=== PATIENT | female | born 1940 | race Caucasian/White ===

== ENCOUNTER → 2016-08-30 | Outpatient (CLI) | payer BC ==
[~2016-08-30] MED LIST: CALC500C70 PO; CALCIUM/MAG PO; CELE50CA PO; CHOL100010 PO; CLB200 PO; ESCI10TA17 PO; ESTER-C PO; LEVO50TA PO; LEVO75TA PO; LEVO75TA36 PO; MULT-506 PO; OXGN; OXYC-57 PO; PANT40TA PO; RXC5 PO; [UNRECOGNIZED DRUG - CODE] PO
== END | disposition home or self-care (01) ==
LOC: C.LABMFLN 11:01
PROVIDERS: ATTEND Family Medicine
DX: R19.7 Diarrhea, unspecified (principal)

== ENCOUNTER → 2016-09-18 | Outpatient (CLI) | payer BC ==
[2016-09-18 18:14] LABS: BASO % 0.5 %; BASO ABS # 0.05 K/uL (0-0.2); COMPLETE YES; EOS % 3.2 %; HEMATOCRIT 41.2 % (37-47); IG% 0.3 %; LYMPH % 31.8 %; LYMPH ABS # 2.98 K/uL (1.2-3.4); MEAN CELL VOLUME 89.6 fL (80-100); MEAN CORPUSCULAR HEMOGLOBIN 29.1 pg (25-34); MEAN CORPUSCULAR HGB CONC 32.5 g/dl (32-36); MONO % 7.6 %; NEUT % 56.6 %; PLATELET COUNT 322 K/uL (130-400); WHITE BLOOD COUNT 9.38 K/uL (4.8-10.8)
[2016-09-22 11:03] LABS: GLIADIN DEAMIDATED IgA AB 4 UNITS (<20); GLIADIN DEAMIDATED IgG AB 3 UNITS (<20); RETICULIN IgA AB Negative (Negative)
== END | disposition home or self-care (01) ==
LOC: C.LABMFLN 14:41
PROVIDERS: ATTEND Internal Medicine Gastroenterology
DX: K52.9 Noninfective gastroenteritis and colitis, unspecified (principal); R19.4 Change in bowel habit

== ENCOUNTER 2017-05-04 08:52 | Inpatient (IN) | payer BC, OTHER ==
[2017-04-27 14:01] VITALS: BMI 25.0
--- NOTE | 2017-04-27 14:58 | PAT Medication Instructions ---
Service Date Apr 27, 2017. Current Home Medication List Calcium/Vitamin D (Os-Perez 500 Plus D), 1 TAB PO QAM Cholecalciferol (Vitamin D), 2,000 UNIT PO QAM Escitalopram (Lexapro), 10 MG PO QAM Home O2 Therapy (Oxygen), 3 LITERS NA PRN PRN for ACTIVITY Levothyroxine Sodium (Synthroid), 50 MCG PO QAM Multivitamin (Multivitamin), 1 TAB PO QAM Oxycodone/Acetaminophen 5MG/325MG (Percocet 5MG/325MG), 1-2 TABLETS PO Q4H PRN for Pain Pantoprazole (Protonix), 40 MG PO QAM Pirfenidone (Esbriet), 3 CAP PO TID [Charlotte-C], 500 MG PO DAILY Medication Instructions For Your Scheduled Surgery - Hold the following medications the morning of surgery: Calcium/Vitamin D (Os-Perez 500 Plus D), 1 TAB PO QAM Cholecalciferol (Vitamin D), 2,000 UNIT PO QAM [Charlotte-C], 500 MG PO DAILY Multivitamin (Multivitamin), 1 TAB PO QAM - Take the following medications the morning of surgery with a sip of water OTHERWISE NOTHING TO EAT OR DRINK AFTER MIDNIGHT: Pirfenidone (Esbriet), 3 CAP PO TID Pantoprazole (Protonix), 40 MG PO QAM Levothyroxine Sodium (Synthroid), 50 MCG PO QAM Escitalopram (Lexapro), 10 MG PO QAM Oxycodone/Acetaminophen 5MG/325MG (Percocet 5MG/325MG), 1-2 TABLETS PO Q4H PRN for Pain (may take if needed up to 4 hours prior to surgery) - Take the following medications as scheduled the night before surgery: Pirfenidone (Esbriet), 3 CAP PO TID Oxycodone/Acetaminophen 5MG/325MG (Percocet 5MG/325MG), 1-2 TABLETS PO Q4H PRN for Pain If you have any questions please call us at [phone] or [phone] or [phone]
[2017-04-27 15:17] LABS: ESTIMATED AVERAGE GLUCOSE 117 mg/dl; HA1C FLAG Normal (Normal)
[2017-04-27 15:30] LABS: INR 0.9 (0.9-1.1); PARTIAL THROMBOPLASTIN RATIO 0.9
[2017-04-27 15:36] LABS: BUN/CREATININE RATIO 16.3 (10-20); CALCIUM 9.2 mg/dl (8.5-10.1); CREATININE 0.82 mg/dl (0.60-1.20); POTASSIUM 3.7 mmol/L (3.5-5.1)
[2017-04-27 15:44] LABS: BASO % 0.3 %; BASO ABS # 0.03 K/uL (0-0.2); COMPLETE YES; EOS % 0.8 %; HEMATOCRIT 39.6 % (37-47); IG% 0.4 %; LYMPH % 24.2 %; LYMPH ABS # 2.58 K/uL (1.2-3.4); MEAN CELL VOLUME 90.4 fL (80-100); MEAN CORPUSCULAR HEMOGLOBIN 29.2 pg (25-34); MEAN CORPUSCULAR HGB CONC 32.3 g/dl (32-36); MEAN PLATELET VOLUME 9.2 fL (7.4-10.4); MONO % 9.6 %; NEUT % 64.7 %; PLATELET COUNT 292 K/uL (130-400); RED BLOOD COUNT 4.38 M/uL (4.2-5.4); WHITE BLOOD COUNT 10.68 K/uL (4.8-10.8)
[2017-04-27 15:55] LABS: URINE APPEARANCE CLEAR (CLEAR); URINE BILIRUBIN NEG (NEG); URINE COLOR DK YELLOW; URINE EPITHELIAL CELL AUTO >30 /lpf (0-5); URINE NITRITE NEG (NEG); URINE PH 5.5 (4.5-7.5); URINE SPECIFIC GRAVITY 1.034 (1.000-1.030); UROBILINOGEN NEG (NEG); ZZUR CULT IF INDIC CLEAN CATCH NO
--- NOTE | 2017-04-27 15:55 | DIAGNOSTIC IMAGING REPORT ---
CHEST 2 VIEWS ROUTINE CLINICAL HISTORY: Preoperative chest COMPARISON STUDY: 10/27/2011 FINDINGS: The heart is enlarged. There has been moderate progression in the extensive interstitial pulmonary fibrosis. There is no lobar consolidation. There are no significant pleural effusions. There is an ununited proximal right humeral fracture.[ IMPRESSION: 1. Progressive interstitial pulmonary fibrosis 2. Displaced ununited proximal right humeral fracture Electronically signed by: Adolfo Pelaez M.D. 04/27/2017 3:54 PM Dictated Date/Time: 04/27/2017 3:52 PM
[2017-04-27 15:59] LABS: MANUAL MICROSCOPIC REQUIRED? NO; REVIEW REQ? NO
--- NOTE | 2017-04-30 08:22 | History and Physical ---
History & Physical Date Apr 30, 2017. Chief Complaint Right shoulder pain History of Present Illness The patient is a 76 year old female with complaints of Right shoulder pain. She states she fell at home on 04/23/17. She states her pain is consistent and it is difficult to move her arm. She had previous x-rays and was in a sling. New x- rays in office show displaced proximal humerus fracture with significant comminution of the lateral aspect of the humeral head. We will schedule her for a right shoulder ORIF with plate fixation verse Right reverse TSA. Past Medical/Surgical History PMHx: (1) Pulmonary Fibrosis (2) Anxiety (3) Hypothyroidism (4) Osteoporosis (5) GERD (6) History of Melanoma PSHx: (1) Right CARLOS (2) Appendectomy (3) Tonsillectomy Additional History Hepatic Disease: No Endocrine Disorder: Yes (Hypothyroidism) Kidney Disease: No Hypertension: No Heart Disease: No Bleeding Tendencies: No Infectious Diseases: No Allergies Coded Allergies: Cefixime (Verified Allergy, Intermediate, HIVES, 04/27/17) Sodium Benzoate (Verified Allergy, Intermediate, HIVES, 04/27/17) Home Medications Scheduled Calcium/Vitamin D (Os-Perez 500 Plus D), 1 TAB PO QAM Cholecalciferol (Vitamin D), 2,000 UNIT PO QAM Escitalopram (Lexapro), 10 MG PO QAM Levothyroxine Sodium (Synthroid), 50 MCG PO QAM Multivitamin (Multivitamin), 1 TAB PO QAM Pantoprazole (Protonix), 40 MG PO QAM Pirfenidone (Esbriet), 3 CAP PO TID [Charlotte-C], 500 MG PO DAILY Scheduled PRN Home O2 Therapy (Oxygen), 3 LITERS NA PRN PRN for ACTIVITY Oxycodone/Acetaminophen 5MG/325MG (Percocet 5MG/325MG), 1-2 TABLETS PO Q4H PRN for Pain Physical Examination Skin: warm/dry, no rash Eyes: normal inspection, EOMI ENT: normal ENT inspection Head: normocephalic, atraumatic Neck: supple, no adenopathy Respiratory/Chest: + pertinent finding (Crackles noted due to Pulmonary fibrosis) Cardiovascular: regular rate, rhythm, no murmur Abdomen / GI: normal bowel sounds, non tender Extremities: + pertinent finding (Right upper extremity with limited ROM due to pain. Ecchymosis, swelling) Neurologic/Psych: no motor/sensory deficits, alert, oriented x 3 Addiitonal Comments: X-rays of the right shoulder demonstrate displacement of the proximal humerus fracture compared to previous films. Diagnosis Displaced Right proximal humerus fracture. Plan of Treatment Patient has failed conservative therapies of a sling and immobilization. X-rays of her right shoulder demonstrated a displaced proximal humerus fracture with significant comminution of the lateral aspect of the humeral head. She will be scheduled for right shoulder ORIF with plate fixation verse Right reverse TSA. She will obtain a CT scan to determine bone quality. Risks and benefits to surgery were discussed that included but not limited to pain, infection, DVT, stiffness, need for revision surgery, damage to blood vessels, damage to nerves , PE, , and anesthesia risk were all discussed and she wishes to proceed. All questions were answered to her satisfaction.
[2017-05-04] VITALS (10 sets, daily range): BP systolic 100–166; BP diastolic 54–86; PULSE 58–79; TEMP 36.4–36.5; O2SAT 94–100; Ht 152.4 cm; Wt 59.6 kg
[~2017-05-04] VITALS: Ht 152.4 cm; Wt 59.6 kg
[~2017-05-04 08:52] MED LIST changes: +BUPIVACAINE 0.5 % 5 MG/1 ML PF 10ML VIAL ONE; -CALCIUM/MAG PO; +CEFAZOLIN 1000MG/55 ML D5W IV SCH; -CELE50CA PO; -CLB200 PO; +CLONIDINE HCL 100 MCG/ML SYRINGE ONE; +LACTATED RINGER'S 1000ML 1,000 ML IV SCH; -LEVO75TA PO; -LEVO75TA36 PO; +MEPIVACAINE HCL 1.5% 30 ML VIAL ONE; +ROPIVACAINE 5MG/ML 30 ML 150 MG, BUPIVACAINE/EPINEPHR 0.5% MPF 30 ML, KETOROLAC TROMETH... INFIL SCH; -RXC5 PO; +VANCOMYCIN 1GM/270ML NSS 270 ML IV SCH
[2017-05-04] MEDS ORDERED: CELE50CA PO (09:22)
--- NOTE | 2017-05-04 09:36 | History & Physical Bridge Note ---
H&P Re-Evaluation Bridge Note: I have examined the patient, reviewed the History & Physical and in the interval since the performance of the History & Physical I have noted the following changes of clinical significance: No changes noted
[2017-05-04] MEDS ORDERED: NURSING VERBAL MED ORDER ONE ×2 (10:15→19:15)
[2017-05-04] MEDS ORDERED: PROPOFOL IV EMULSION 10 MG/ML 20 ML VIAL IV ONE (10:32)
[2017-05-04] MEDS ORDERED: FENTANYL CITRATE INJ 50 MCG/1 ML 2 ML VIAL ONE (10:32)
[2017-05-04] MEDS ORDERED: MIDAZOLAM HCL 1 MG/ML 2ML VIAL ONE (10:32)
[2017-05-04] MEDS ORDERED: THROMBIN FOR SOLN 20000 UNIT KIT ONE (11:59)
[2017-05-04] MEDS ORDERED: POVIDONE-IODINE OP SOLN 30 ML BTL ONE (12:00)
[2017-05-04] MEDS ORDERED: LABETALOL HCL IV 5 MG/ML 20ML IV PRN (12:00)
[2017-05-04] MEDS ORDERED: HYDROmorphone INJ 2 MG/ML SYR/VIAL IV PRN (12:00)
[2017-05-04] MEDS ORDERED: PHENYLEPHRINE 100MCG/ML 5ML SYR IV PRN (12:00)
[2017-05-04] MEDS ORDERED: MEPERIDINE HCL 25 MG/ML CARP IV PRN (12:00)
[2017-05-04] MEDS ORDERED: ONDANSETRON INJ 2 MG/ML 2 ML VIAL IV PRN ×2 (12:00→15:15)
[2017-05-04] MEDS ORDERED: ATROPINE SULFATE 0.1 MG/ML 5ML SYR IV PRN (12:00)
[2017-05-04] MEDS ORDERED: EpHEDrine SULFATE INJ 50 MG/ML AMP IV PRN (12:00)
[2017-05-04] MEDS ORDERED: VANCOMYCIN HCL 1000MG/20ML VIAL ONE (12:00)
[2017-05-04] MEDS ORDERED: NALOXONE HCL 0.4 MG/1 ML VIAL/CARP IV PRN (12:00)
[2017-05-04] MEDS ORDERED: BACITRACIN 50000 UNIT VIAL ONE (12:00)
[2017-05-04] MEDS ORDERED: FLUMAZENIL 0.1 MG/1 ML 10 ML VIAL IV PRN (12:00)
[2017-05-04] MEDS ORDERED: FENTANYL CITRATE INJ 50 MCG/1 ML 2 ML VIAL IV PRN (12:00)
[2017-05-04] MEDS ORDERED: ROPIVACAINE 0.5% 5 MG/ML 30 ML VIAL ONE (12:23)
[2017-05-04] MEDS ORDERED: BUPIVACAINE/EPINEPHRINE 0.5% MPF 1:200,000 30 ML VIAL ONE (12:24)
[2017-05-04] MEDS ORDERED: GLYCOPYRROLATE INJ 0.2 MG/ML VIAL ONE ×2 (14:25→14:27)
[2017-05-04] MEDS ORDERED: ROCURONIUM BROMIDE 10 MG/ML 5 ML VIAL IV ONE (14:25)
[2017-05-04] MEDS ORDERED: PHENYLEPHRINE 100MCG/ML 5ML SYR ONE (14:25)
[2017-05-04] MEDS ORDERED: PHENYLEPHRINE HCL INJ 10 MG/ML VIAL ONE (14:25)
[2017-05-04] MEDS ORDERED: METOCLOPRAMIDE HCL INJ 5 MG/ML 2 ML VIAL IV PRN (15:15)
[2017-05-04] MEDS ORDERED: ALUMINUM/MAGNESIUM SUSP 30 ML UDC PO PRN (15:15)
[2017-05-04] MEDS ORDERED: MAGNESIUM HYDROXIDE SUSP 30 ML UDC PO PRN (15:15)
[2017-05-04] MEDS: KETOROLAC TROMETHAMINE 15 MG/ML VIAL IM SCH ×2 (15:15→21:15)
[2017-05-04] MEDS ORDERED: MoRPHine SULFATE 2 MG/ML CARP IV PRN ×2 (15:15→17:30)
--- NOTE | 2017-05-04 15:30 | [facility] Operative Report ---
Operative Report Operative Date May 04, 2017. Pre-Operative Diagnosis Displaced comminuted 4 part Right Proximal Humerus Fracture Post-Operative Diagnosis same, tear long head of the biceps tendon Procedure(s) Performed Right Reverse Total Shoulder Arthroplasty; Cemented, biceps tenodesis Surgeon Dr. Scooby Pearson Diet Attendant Surgeon(s) Wili Nam PA-C Estimated Blood Loss 100 cc Findings Severe comminution of the greater tuberosity as well as the lesser tuberosity Specimens a. right humeral head Drains one Hemovac Anesthesia Gen. and interscalene block Complication(s) None Disposition Recovery Room / PACU Indications 76-year-old female who sustained a fall. She sustained a initially acceptably aligned proximal humerus fracture. She was seen again in 1 week after the injury and the fracture had significantly displaced. She was initially consented for ORIF versus arthroplasty depending on the findings of a CT scan. CT scan then demonstrated fairly severe comminution of both the greater tuberosity as well as lesser tuberosity. We elected to proceed with a reverse total shoulder arthroplasty Description of Procedure Risks, benefits and alternatives to surgery including, but not limited to, infection DVT, pain, stiffness, need for revision surgery, failure to relieve all symptoms, damage to blood vessels, damage to nerves, risk of anesthesia were discussed with the patient and they wished to proceed. The patient was identified. Laterality was confirmed and marked. The patient received a preoperative antibiotic as well as an interscalene block. They were transferred to the operating room and placed in the supine position and induced into general endotracheal anesthesia per the anesthesia staff. The patient was then safely transferred to a slight beachchair position. The patient was secured in the Tenet positioner. All pressure points were well padded. The shoulder was prepped and draped in the usual sterile manner with ChloraPrep. The arm was secured in the Spider de la torre. I made a longitudinal incision just lateral to the coracoid, sharply incising through the skin and utilizing Bovie electrocautery to achieve hemostasis. I identified the cephalic vein and mobilized it laterally with the deltoid. I mobilize the pectoralis and mobilize this medially releasing a small portion of the upper border of the pec tendon to improve visualization. I then identified and mobilized the conjoined tendon. I identified the long head of the biceps tendon. The long head of the biceps tendon had significant tendinosis and tearing proximally. I performed an in situ biceps tenodesis with interrupted #2 FiberWire suture. I dissected proximally and identified the fracture site. I then released the subscapularis. There was significant comminution to the lesser tuberosity and there was little bone that was still in continuity with the subscapularis. The subscapularis was tagged with interrupted #2 FiberWire suture for later repair. I then mobilized the humeral head fragment. I used an osteotome to remove the greater tuberosity portion that was still with the humeral head. I then placed a total of 3 #2 FiberWire sutures into the supraspinatus and infraspinatus which still had a little bit of bony material attached for later repair of the tuberosities. I then sequentially reamed up to a size 7. I was not able to get up to the next size reamer. I tried to use a press-fit stem but there was essentially no metaphyseal bone remaining and I did not feel I could get rotational control with the press-fit stem so I elected to use a 6.5 mm cemented fracture stem. I placed retractors around the glenoid and then excised the residual biceps tendon stump and glenoid labrum. I elevated the soft tissues and the inferior aspect of the glenoid to improve exposure and released tissues circumferentially. I then positioned and drilled for the central post for the glenoid plate. The glenoid plate was bone grafted with bone taken from the humeral head. I impacted the definitive glenoid plate into position and then placed a total of 4 compression screws that were then locked into position with locking caps. I then placed the size 38 glenosphere onto the plate and secured it with a locking screw. I then prepared the humerus by irrigating for placement of the fracture stem. I trimmed the cement restrictor down the central portion of the cement restrictor measures 8 mm but the insertion handle is 10 mm and would not fit down the humerus. I used a long fracture stem to impact the cement restrictor to an appropriate depth distally. I then cemented the definitive stem with Palacos G cement . I trialed off of the definitive stem. There was good fit with a plus [0) humeral tray and a plus 2.5 mm humeral liner. The definitive components used were [employer] Equinox: Humeral cemented fracture stem: 6.5 Standard glenoid plate Glenosphere: 38 Humeral tray:+ 0 Humeral polyethylene liner: + 2.5 I thoroughly irrigated the wound. Deep tissues were anesthetized with an orthomix solution. I then locked my definitive humeral tray into position with a torque limiting screw. I then impacted the definitive humeral polyethylene liner into position. I then reduced the shoulder. There was good range of motion and good stability after the reduction. The wound was again thoroughly irrigated and a Betadine soak was performed. A deep drain was placed. The deltopectoral interval was closed with interrupted #1 Ethibond suture. The subcutaneous tissue was closed with interrupted 2-0 Vicryl suture. The skin was closed with antonio. A sterile dressing was applied. A sling was placed. All needle and sponge counts were correct at the end of the procedure. The patient was transferred to the PACU in stable condition without apparent complication. The PA-C was necessary for assistance with procedure for assistance in positioning, prepping, draping, retraction and closure. I attest to the content of the Intraoperative Record and any orders documented therein. Any exceptions are noted below.
--- NOTE | 2017-05-04 16:55 | DIAGNOSTIC IMAGING REPORT ---
R SHOULDER MIN 2 VIEWS ROUTINE CLINICAL HISTORY: 76 years-old Female presenting with Post shoulder surgery. TECHNIQUE: Frontal and transscapular Y views of the right shoulder were obtained. COMPARISON: Chest x-ray from 04/27/2017. FINDINGS: Interval postsurgical changes of total reverse right shoulder arthroplasty for the right humeral neck fracture. Surgical drain and skin antonio noted as well as soft tissue emphysema. No malalignment. No hardware complication. Again demonstrated are diffuse reticular opacities with a basilar predominance in the right lung. IMPRESSION: Expected postoperative appearance status post total reverse right shoulder arthroplasty. Electronically signed by: Scooby Guthrie M.D. 05/04/2017 4:54 PM Dictated Date/Time: 05/04/2017 4:52 PM
[2017-05-04] MEDS ORDERED: SODIUM CHLORIDE 0.9% 1000ML 1,000 ML IV SCH (17:27)
[2017-05-04] MEDS ORDERED: MoRPHine SULFATE 4 MG/ML 1 ML CARP\\VIAL IV PRN (17:30)
[2017-05-04] MEDS ORDERED: LORAZEPAM 0.5 MG TAB PO PRN (17:30)
[2017-05-04] MEDS ORDERED: LORAZEPAM 2 MG/ML 1 ML VIAL IV PRN ×2 (17:30)
[2017-05-04] MEDS ORDERED: NOREPINEPHRINE BIT INJ 8 MG in DEXTROSE 5% 500ML 500 ML IV PRN (17:45)
--- NOTE | 2017-05-04 18:28 | Medical Consult ---
History General Date of Service: May 04, 2017. Stated Complaint: Fracture of Upper End Right Humerus; Initial Encou HPI The patient is a 76 year old female who presents to [facility] with complaints of Fracture of Upper End Right Humerus; Initial Encou. The patient's primary care provider is Christal Dumont M.D.. I was called to see this patient in the postanesthesia care unit. The patient had a shoulder replacement and is now has been persistent postoperative hypotension. The patient typically does not take any medications for hypertension and preoperatively she did have her blood pressure in the 110's over 70s. The patient was awake alert and responsive she typically wears 3 L of oxygen at home which she had replaced her right arm nerve block was still intact and she is having only minor paresthesias to her distal right arm the patient had a blood pressure cuff on the distal upper left arm it was reading 90/50. This is after recently receiving phenylephrine. Patient is having no chest pain pressure do not feel any increased shortness of breath over baseline no abdominal pain and she's having no decreased mentation Review of Systems ROS: well nourished well developed No double vision blurry vision No problems with speech or swallowing No palpitations, chest pain or pressure No Wheezing or breathing issues No abdominal pain nausea vomiting diarrhea changes in appetite or weight No burning urine urine frequency or changes in color Patient has numbness of her right arm from her nerve block as would be expected her left arm distal sensation and pulses are intact No skin rashes or oral lesions No unusual bruising or bleeding No focused back pain or numbness or loss of strength No changes in memory or confusion Past Medical History Past Medical History: arthritis (osteoarthritis), cancer (she had melena removal), high cholesterol, hypothyroidism, lung disease (patient has pulmonary fibrosis) Past Surgical History: tonsillectomy, other (surgeon to remove her melena) Family History Parent: Hypertension, Lung Disease (unsure what kind) Social History Hx Tobacco Use In Past Year?: No Smoking Status: Never Smoker Immunizations History of Influenza Vaccine: Yes Influenza Vaccine Date: Apr 16, 2011 History of Tetanus Vaccine?: Yes History of Pneumococcal: No History of Hepatitis B Vaccine: No Allergies Coded Allergies: Cefixime (Verified Allergy, Intermediate, HIVES, 05/04/17) Sodium Benzoate (Verified Allergy, Intermediate, HIVES, 05/04/17) Current Medications Reported Home Medications Medications Dose Route/Sig Max Daily Dose Days Date Category Dose Instructions Celebrex (Celecoxib) 50 Mg Cap 50 Mg PO BID 05/04/17 Reported Vitamin D (Cholecalciferol) 1,000 Unit Tab 2,000 Unit PO QAM 04/27/17 Reported Protonix (Pantoprazole Sodium) 40 Mg Tab 40 Mg PO QAM 04/27/17 Reported Oxygen Gas 3 Liters NA PRN PRN 04/27/17 Reported Lexapro (Escitalopram Oxalate) 10 Mg Tab 10 Mg PO QAM 04/27/17 Reported Esbriet (Pirfenidone) 267 Mg Cap 3 Cap PO TID 04/27/17 Reported CLINICAL TRIAL DRUG Os-Perez 500 Plus D (Calcium/Vitamin D) Tab 1 Tab PO QAM 04/27/17 Reported Synthroid (Levothyroxine Sodium) 50 Mcg Tab 50 Mcg PO QAM 04/27/17 Reported Multivitamin (Multivitamins) Tab 1 Tab PO QAM 10/27/11 Reported [Charlotte-C] 500 Mg PO DAILY 10/27/11 Reported Physical Physical Exam Vital Signs: Date Time Temp Pulse Resp B/P (MAP) Pulse Ox O2 Delivery O2 Flow Rate FiO2 05/04/17 17:51 94/60 05/04/17 17:49 62 16 05/04/17 17:49 62 16 99 05/04/17 17:47 94/55 05/04/17 17:44 64 30 99 05/04/17 17:44 64 30 05/04/17 17:39 63 24 99 05/04/17 17:39 63 24 05/04/17 17:38 93/58 05/04/17 17:36 73/59 05/04/17 17:34 62 31 99 05/04/17 17:34 62 31 05/04/17 17:31 97/56 05/04/17 17:29 81 16 05/04/17 17:29 81 16 94 05/04/17 17:27 112/55 05/04/17 17:24 67 20 98 05/04/17 17:24 68 20 05/04/17 17:21 98/64 05/04/17 17:19 66 20 100 05/04/17 17:19 67 20 05/04/17 17:16 87/64 05/04/17 17:14 56 27 9/22/17 17:14 56 27 100 9/22/17 17:11 95/60 9/22/17 17:09 59 25 9/22/17 17:09 59 25 100 9/22/17 17:08 58 9 9/22/17 17:08 59 9 100 9/22/17 17:06 83/55 9/22/17 17:03 63 28 100 9/22/17 17:03 63 28 9/22/17 17:01 89/58 9/22/17 16:58 58 25 9/22/17 16:58 58 25 100 9/22/17 16:56 82/50 9/22/17 16:53 58 31 9/22/17 16:53 57 31 100 9/22/17 16:52 58 31 9/22/17 16:52 58 31 100 9/22/17 16:51 63 30 9/22/17 16:51 62 30 74/49 100 9/22/17 16:48 68/40 9/22/17 16:46 59 30 9/22/17 16:46 59 30 100 9/22/17 16:44 84/50 9/22/17 16:41 61 32 104/55 100 9/22/17 16:41 61 32 9/22/17 16:38 69/46 9/22/17 16:36 63 27 100 9/22/17 16:36 63 27 9/22/17 16:35 100/60 9/22/17 16:34 65 31 9/22/17 16:34 64 31 99 9/22/17 16:33 66/44 9/22/17 16:30 67 29 9/22/17 16:30 67 29 99 9/22/17 16:26 100/41 9/22/17 16:25 70 32 9/22/17 16:25 70 32 100 9/22/17 16:24 /43 9/22/17 16:21 72/52 9/22/17 16:20 66 34 99 9/22/17 16:20 66 34 9/22/17 16:19 71/50 9/22/17 16:15 66 34 9/22/17 16:15 66 34 100 9/22/17 16:10 67 35 55/36 100 9/22/17 16:10 67 35 9/22/17 16:09 76/47 05/04/17 16:07 92/ 05/04/17 16:05 65 30 57/46 100 05/04/17 16:05 65 30 05/04/17 16:04 74/46 05/04/17 16:02 70/55 05/04/17 16:00 57 33 109/59 100 05/04/17 16:00 57 33 05/04/17 15:58 110/64 05/04/17 15:56 57/39 05/04/17 15:55 71 31 05/04/17 15:55 71 31 50/35 100 05/04/17 15:53 56/42 05/04/17 15:50 72 30 100 05/04/17 15:50 36.2 72 16 110/64 100 Mask 10 05/04/17 15:50 72 30 05/04/17 09:24 36.5 79 20 119/77 94 Room Air General Appearance: WELL-APPEARING, uncomfortable Head: NORMOCEPHALIC, ATRAUMATIC Eyes: PERRLA, EOMI Respiratory: NO RESPIRATORY DISTRESS, rales (at bases there fine) Cardiovasular: REGULAR RATE/RHYTHM, NORMAL S1S2 Abdomen: NON TENDER, NORMAL BOWEL SOUNDS, NO REBOUND Upper Extremities: NO EDEMA, other (bandage and sling in place on right arm) Lower Extremities: NO EDEMA, NORMAL ROM Pulses: radial (R), radial (L) (1+) Neuro: ALERT, ORIENTED x 3 Psychiatric: NORMAL AFFECT, NO SUICIDAL IDEATION Diagnostics Labs Microbiology Results 05/04/17 MRSA DNA Surveillance Screen, Ordered Pending Impression Assessment and Plan 76-year-old female status post shoulder replacement surgery with postoperative hypotension The patient received 2 L crystalloid in the OR she'll be transferred to the ICU overnight for close watching we'll use Levophed if need be. We'll maintain IV fluids at 100 in our with close watching of her to avoid fluid overload given her under lying lung disease 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 I personally discussed this case with Dr. Devine anesthesia and Dr. Rodriguez in the ICU
--- NOTE | 2017-05-04 18:54 | Anesthesiology Progress Note ---
Anesthesia Post Op Note Date & Time May 04, 2017 at 18:42 Vital Signs Pain Intensity: 0 Vital Signs Past 12 Hours Date Time Temp Pulse Resp B/P (MAP) Pulse Ox O2 Delivery O2 Flow Rate FiO2 05/04/17 18:22 59 16 05/04/17 18:22 59 16 99 05/04/17 18:21 100/63 05/04/17 18:17 60 16 05/04/17 18:17 59 16 99 05/04/17 18:16 109/61 05/04/17 18:12 71 31 99 05/04/17 18:12 71 31 05/04/17 18:11 104/46 05/04/17 18:07 59 27 99 05/04/17 18:07 58 27 05/04/17 18:06 99/60 05/04/17 18:02 59 27 99 05/04/17 18:02 59 27 05/04/17 18:01 114/61 05/04/17 17:57 59 26 99 05/04/17 17:57 59 26 05/04/17 17:56 99/56 05/04/17 17:52 60 25 05/04/17 17:52 61 25 99 05/04/17 17:51 94/60 05/04/17 17:49 62 16 05/04/17 17:49 62 16 99 05/04/17 17:47 94/55 05/04/17 17:44 64 30 99 05/04/17 17:44 64 30 05/04/17 17:39 63 24 99 05/04/17 17:39 63 24 05/04/17 17:38 93/58 05/04/17 17:36 73/59 05/04/17 17:34 62 31 99 05/04/17 17:34 62 31 05/04/17 17:31 97/56 05/04/17 17:29 81 16 05/04/17 17:29 81 16 94 05/04/17 17:27 112/55 05/04/17 17:24 67 20 98 05/04/17 17:24 68 20 05/04/17 17:21 98/64 05/04/17 17:19 66 20 100 05/04/17 17:19 67 20 05/04/17 17:16 87/64 05/04/17 17:14 56 27 9/22/17 17:14 56 27 100 9/22/17 17:11 95/60 9/22/17 17:09 59 25 9/22/17 17:09 59 25 100 9/22/17 17:08 58 9 9/22/17 17:08 59 9 100 9/22/17 17:06 83/55 9/22/17 17:03 63 28 100 9/22/17 17:03 63 28 9/22/17 17:01 89/58 9/22/17 16:58 58 25 9/22/17 16:58 58 25 100 9/22/17 16:56 82/50 9/22/17 16:53 58 31 9/22/17 16:53 57 31 100 9/22/17 16:52 58 31 9/22/17 16:52 58 31 100 9/22/17 16:51 63 30 9/22/17 16:51 62 30 74/49 100 9/22/17 16:48 68/40 9/22/17 16:46 59 30 9/22/17 16:46 59 30 100 9/22/17 16:44 84/50 9/22/17 16:41 61 32 104/55 100 9/22/17 16:41 61 32 9/22/17 16:38 69/46 9/22/17 16:36 63 27 100 9/22/17 16:36 63 27 9/22/17 16:35 100/60 9/22/17 16:34 65 31 9/22/17 16:34 64 31 99 9/22/17 16:33 66/44 9/22/17 16:30 67 29 9/22/17 16:30 67 29 99 9/22/17 16:26 100/41 9/22/17 16:25 70 32 9/22/17 16:25 70 32 100 9/22/17 16:24 /43 9/22/17 16:21 72/52 9/22/17 16:20 66 34 99 9/22/17 16:20 66 34 9/22/17 16:19 71/50 9/22/17 16:15 66 34 9/22/17 16:15 66 34 100 9/22/17 16:10 67 35 55/36 100 9/22/17 16:10 67 35 9/22/17 16:09 76/47 05/04/17 16:07 92/ 05/04/17 16:05 65 30 57/46 100 05/04/17 16:05 65 30 05/04/17 16:04 74/46 05/04/17 16:02 70/55 05/04/17 16:00 57 33 109/59 100 05/04/17 16:00 57 33 05/04/17 15:58 110/64 05/04/17 15:56 57/39 05/04/17 15:55 71 31 05/04/17 15:55 71 31 50/35 100 05/04/17 15:53 56/42 05/04/17 15:50 72 30 100 05/04/17 15:50 36.2 72 16 110/64 100 Mask 10 05/04/17 15:50 72 30 05/04/17 09:24 36.5 79 20 119/77 94 Room Air Notes Mental Status: alert / awake / arousable, participated in evaluation Pt Amnestic to Procedure: Yes Nausea / Vomiting: adequately controlled Pain: adequately controlled Airway Patency, RR, SpO2: stable & adequate BP & HR: stable & adequate Hydration State: stable & adequate Anesthetic Complications: no major complications apparent The patient required phenylephrine in the OR to maintain her blood pressure. In the PACU the patient was awake and comfortable. Her HR was in the 60s but her BP was in the 70s/40s eventually rising to the 90s/50. She was given occasional boluses of phenylephrine and a 500 ml bolus of fluid. Dr. Clancy came to evaluate the patient and wanted her to be monitored in the ICU overnight due to her hypotension. I spoke to Dr. Rodriguez who will follow the patient in the ICU.
--- NOTE | 2017-05-04 19:59 | Critical Care Consultation ---
Critical Care Consultation Date of Consultation: May 04, 2017. Attending Physician: Scooby Pearson M.D. Reason for Consultation: hypotension. History of Present Illness Dear Dr. Novak: Thank you for your kind referral of Mrs. Valerio to ICU service. this is 76 yo female with a hx of IPF, on pirfenidone and home O2 PRN, hx of OA, sustained a fx of the right humerous after a fall, presented to the hospital and underwent right shoulder repair , post op she had a brief period of hypotension responded to phenylephrine injections . the pt did not have symptoms , denies sob, dizziness or chest pain. no visual disturbances no headache, no palpitation. started on IVF and in the ICU she was recovered entirely from hypotension. she was following commands speaking in full sentences, excellent informant. asymptomatic except for the right shoulder pain post op understandably. Past Medical/Surgical History IPF, Hypothyroidism, OA, right shoulder surgical repair. Social History Smoking Status: Former Smoker Alcohol Use: none Drug Use: none Housing Status: lives with family Occupation Status: unemployed Allergies Coded Allergies: Cefixime (Verified Allergy, Intermediate, HIVES, 05/04/17) Sodium Benzoate (Verified Allergy, Intermediate, HIVES, 05/04/17) Home Medications Scheduled Calcium/Vitamin D (Os-Perez 500 Plus D), 1 TAB PO QAM Celecoxib (Celebrex), 50 MG PO BID Cholecalciferol (Vitamin D), 2,000 UNIT PO QAM Escitalopram (Lexapro), 10 MG PO QAM Levothyroxine Sodium (Synthroid), 50 MCG PO QAM Multivitamin (Multivitamin), 1 TAB PO QAM Pantoprazole (Protonix), 40 MG PO QAM Pirfenidone (Esbriet), 3 CAP PO TID [Charlotte-C], 500 MG PO DAILY Scheduled PRN Home O2 Therapy (Oxygen), 3 LITERS NA PRN PRN for ACTIVITY Current Inpatient Medications Current Inpatient Medications Medications (Trade) Dose Ordered Sig/José Miguel Route Start Time Stop Time Status Last Admin Dose Admin Lactated Ringer's 1,000 ml @ 15 mls/hr Q24H IV 05/04/17 06:00 05/05/17 05:59 05/04/17 11:02 15 MLS/HR Calcium/Vitamin D (Caltrate Plus Tab) 1 tab QAM PO 05/05/17 09:00 06/04/17 08:59 Cholecalciferol (Vitamin D Tab) 2,000 inter.unit QAM PO 05/05/17 09:00 06/04/17 08:59 Escitalopram Oxalate (Lexapro Tab) 10 mg QAM PO 05/05/17 09:00 06/04/17 08:59 Levothyroxine Sodium (Synthroid Tab) 50 mcg DAILYBB PO 05/05/17 06:00 06/04/17 05:59 Pantoprazole Sodium (Protonix Tab) 40 mg QAM PO 05/05/17 09:00 06/04/17 08:59 Miscellaneous Information (Order Awaiting Action) 1 ea QS N/A 05/05/17 00:00 06/04/17 00:00 Metoclopramide HCl (Reglan Inj) 10 mg Q6H PRN IV 05/04/17 15:15 06/03/17 15:14 Ondansetron HCl (Zofran Inj) 4 mg Q6H PRN IV 05/04/17 15:15 06/03/17 15:14 Al Hydroxide/Mg Hydroxide (Maalox Susp) 30 ml Q4H PRN PO 05/04/17 15:15 06/03/17 15:14 Vancomycin HCl 1000 mg/Sodium Chloride 270 ml @ 125 mls/hr Q12H IV 05/04/17 22:00 05/05/17 00:10 Acetaminophen (Tylenol Tab) 1,000 mg Q8 PO 05/04/17 22:00 06/03/17 21:59 Magnesium Hydroxide (Milk Of Magnesia Susp) 30 ml Q6H PRN PO 05/04/17 15:15 06/03/17 15:14 Ferrous Gluconate (Ferrous Gluconate Tab) 324 mg TIDM PO 05/04/17 18:00 06/03/17 17:59 Ketorolac Tromethamine (Toradol Inj) 15 mg Q6H IM 05/04/17 15:15 05/05/17 16:00 Sodium Chloride 1,000 ml @ 80 mls/hr [id number] IV 05/04/17 17:27 06/03/17 17:26 Acetaminophen (Tylenol Tab) 650 mg Q4H PRN PO 05/04/17 17:30 06/03/17 17:29 Lorazepam (Ativan Tab) 0.5 mg Q4H PRN PO 05/04/17 17:30 06/03/17 17:29 Lorazepam (Ativan Inj) 0.5 mg Q4H PRN IV 05/04/17 17:30 06/03/17 17:29 Lorazepam (Ativan Inj) 1 mg Q6H PRN IV 05/04/17 17:30 06/03/17 17:29 Norepinephrine Bitartrate 8 mg/ Dextrose 508 ml @ 0 mls/hr Q0M PRN IV 05/04/17 17:45 06/03/17 17:44 Morphine Sulfate (MoRPHine SULFATE INJ) 2 mg Q2H PRN IV 05/04/17 17:30 05/18/17 17:29 Morphine Sulfate (MoRPHine SULFATE INJ) 4 mg Q2H PRN IV 05/04/17 17:30 05/18/17 17:29 Review of Systems Constitutional: No fever, No chills, No sweats, No weight loss, No weakness, No fatigue, No problem reported Eyes: No worsening of vision, No eye pain, No redness, No discharge, No diplopia, No problem reported ENT: No hearing loss, No unusual epistaxis, No nasal symptoms, No sore throat, No tinnitus, No dental problems, No trouble swallowing, No problem reported Respiratory: No cough, No sputum, No wheezing, No shortness of breath, No dyspnea on exertion, No dyspnea at rest, No hemoptysis, No problem reported Cardiovascular: No chest pain, No orthopnea, No PND, No edema, No claudication , No palpitations, No problem reported Musculoskeletal: + joint pain Genitourinary - Female: + dysuria, + urinary frequency Neurologic: No memory loss, No paralysis, No weakness, No numbness/tingling, No vertigo, No balance problems, No problem reported Endocrine: + fatigue, + excessive thirst Allergic / Immunologic: No environmental allergies, No seasonal allergies, No pet sensitivities, No food allergies, No hives, No frequent infections, No poor healing, No prolonged convalescence, No problem reported Physical Exam Date Time Temp Pulse Resp B/P (MAP) Pulse Ox O2 Delivery O2 Flow Rate FiO2 05/04/17 18:50 36.5 74 25 120/72 (88) 99 Nasal Cannula 3.0 9/22/17 18:22 59 16 05/04/17 18:22 59 16 99 22/17 18:21 100/63 22/17 18:17 60 16 05/04/17 18:17 59 16 99 05/04/17 18:16 109/61 22/17 18:12 71 31 99 /22/17 18:12 71 31 05/04/17 18:11 104/46 05/04/17 18:07 59 27 99 05/04/17 18:07 58 27 05/04/17 18:06 99/60 05/04/17 18:02 59 27 99 05/04/17 18:02 59 27 05/04/17 18:01 114/61 05/04/17 17:57 59 26 99 05/04/17 17:57 59 26 05/04/17 17:56 99/56 05/04/17 17:52 60 25 05/04/17 17:52 61 25 99 05/04/17 17:51 94/60 17 17:49 62 16 17 17:49 62 16 99 05/04/17 17:47 94/55 05/04/17 17:44 64 30 99 05/04/17 17:44 64 30 05/04/17 17:39 63 24 99 05/04/17 17:39 63 24 05/04/17 17:38 93/58 05/04/17 17:36 73/59 05/04/17 17:34 62 31 99 05/04/17 17:34 62 31 05/04/17 17:31 97/56 05/04/17 17:29 81 16 05/04/17 17:29 81 16 94 22/17 17:27 112/55 05/04/17 17:24 67 20 98 22/17 17:24 68 20 22/17 17:21 98/64 05/04/17 17:19 66 20 100 05/04/17 17:19 67 20 05/04/17 17:16 87/64 05/04/17 17:14 56 27 05/04/17 17:14 56 27 100 05/04/17 17:11 95/60 05/04/17 17:09 59 25 05/04/17 17:09 59 25 100 9/22/17 17:08 58 9 9/22/17 17:08 59 9 100 9/22/17 17:06 83/55 9/22/17 17:03 63 28 100 9/22/17 17:03 63 28 9/22/17 17:01 89/58 9/22/17 16:58 58 25 9/22/17 16:58 58 25 100 9/22/17 16:56 82/50 9/22/17 16:53 58 31 9/22/17 16:53 57 31 100 9/22/17 16:52 58 31 9/22/17 16:52 58 31 100 9/22/17 16:51 63 30 9/22/17 16:51 62 30 74/49 100 9/22/17 16:48 68/40 9/22/17 16:46 59 30 9/22/17 16:46 59 30 100 9/22/17 16:44 84/50 9/22/17 16:41 61 32 104/55 100 /22/17 16:41 61 32 /22/17 16:38 69/46 922/17 16:36 63 27 100 9/22/17 16:36 63 27 /22/17 16:35 100/60 9/22/17 16:34 65 31 9/22/17 16:34 64 31 99 9/22/17 16:33 66/44 922/17 16:30 67 29 9/22/17 16:30 67 29 99 9/22/17 16:26 100/41 9/22/17 16:25 70 32 9/22/17 16:25 70 32 100 9/22/17 16:24 /43 9/22/17 16:21 72/52 9/22/17 16:20 66 34 99 9/22/17 16:20 66 34 9/22/17 16:19 71/50 9/22/17 16:15 66 34 9/22/17 16:15 66 34 100 9/22/17 16:10 67 35 55/36 100 9/22/17 16:10 67 35 9/22/17 16:09 76/47 9/22/17 16:07 92/ 9/22/17 16:05 65 30 57/46 100 9/22/17 16:05 65 30 9/22/17 16:04 74/46 05/04/17 16:02 70/55 05/04/17 16:00 57 33 109/59 100 05/04/17 16:00 57 33 05/04/17 15:58 110/64 05/04/17 15:56 57/39 05/04/17 15:55 71 31 05/04/17 15:55 71 31 50/35 100 05/04/17 15:53 56/42 05/04/17 15:50 72 30 100 05/04/17 15:50 36.2 72 16 110/64 100 Mask 10 05/04/17 15:50 72 30 05/04/17 09:24 36.5 79 20 119/77 94 Room Air General Appearance: well-appearing, no apparent distress Head: normocephalic Eyes: PERRLA, no discharge, EOMI ENT: normal nasal exam, normal mouth exam Neck: normal range of motion Respiratory: rhonchi Cardiovasular: normal S1S2, no M/G/R, no murmur Abdomen: non tender, no rebound, no masses Back: normal inspection, no midline tenderness Upper Extremities: other Neuro: alert, oriented x 3, normal motor exam Psychiatric: normal affect Laboratory Results Last 24 Hours Test 05/04/17 18:38 Bedside Glucose 80 mg/dl Diagnostic Results CXR reviewed personally showing pulmonary fibrosis basilar. Assessment & Plan 1- Iatrogenic hypotension , resolved. 2- post op right shoulder surgery. 3- IPF on pirfenidone. 4- OA. Plan; 1- continue pirfenidone. 2- MS for pain. 3- IVF if needed. 4- watch in ICU overnight. 5- venodyne boots. 6- full code. 7- oral intake. 8- continuous O2. discussed with Dr. Novak and the staff on rounds. CCT 35 min.
[2017-05-04] MEDS ORDERED: D5W AND 1/2NSS + 20MEQ KCL 1,000 ML IV SCH (20:00)
[2017-05-04] MEDS: PIRFENIDONE 267 MG PO SCH (20:35)
[2017-05-04] MEDS: FERROUS GLUCONATE 324 MG TAB PO SCH (20:37)
[2017-05-04] MEDS: ACETAMINOPHEN 500 MG TAB PO SCH (20:39)
[2017-05-04] MEDS ORDERED: VANCOMYCIN INJ 1,000 MG in SODIUM CHLORIDE 0.9% 250ML 250 ML IV SCH (22:00)
[2017-05-05] VITALS (23 sets, daily range): BP systolic 70–170; BP diastolic 48–89; PULSE 58–100; TEMP 36.4–36.9; O2SAT 85–100
[2017-05-05] MEDS: KETOROLAC TROMETHAMINE 15 MG/ML VIAL IM SCH (01:19)
[2017-05-05 01:48] LABS: BASO % 0.1 %; BASO ABS # 0.01 K/uL (0-0.2); COMPLETE YES; EOS % 0.1 %; HEMATOCRIT 28.8 % (37-47); IG% 0.6 %; LYMPH % 12.1 %; LYMPH ABS # 1.21 K/uL (1.2-3.4); MEAN CELL VOLUME 91.1 fL (80-100); MEAN CORPUSCULAR HEMOGLOBIN 29.7 pg (25-34); MEAN CORPUSCULAR HGB CONC 32.6 g/dl (32-36); MEAN PLATELET VOLUME 8.1 fL (7.4-10.4); MONO % 8.4 %; NEUT % 78.7 %; PLATELET COUNT 279 K/uL (130-400); RED BLOOD COUNT 3.16 M/uL (4.2-5.4); WHITE BLOOD COUNT 9.99 K/uL (4.8-10.8)
[2017-05-05 02:10] LABS: BUN/CREATININE RATIO 16.9 (10-20); CALCIUM 7.8 mg/dl (8.5-10.1); CREATININE 0.59 mg/dl (0.60-1.20); POTASSIUM 4.6 mmol/L (3.5-5.1)
[2017-05-05] MEDS: ACETAMINOPHEN 500 MG TAB PO SCH (05:11)
[2017-05-05] MEDS: LEVOTHYROXINE 50 MCG TAB PO SCH (05:12)
[2017-05-05] MEDS ORDERED: INFLUENZA VACCINE HIGH DOSE 65+ 0.5 ML SYR IM. ONE (05:45)
[2017-05-05] MEDS ORDERED: INFLUENZA ADMINISTRATION CHARGE ONE (05:45)
[2017-05-05] MEDS: ACETAMINOPHEN 325 MG TAB PO PRN ×2 (07:40→18:50)
[2017-05-05] MEDS: FERROUS GLUCONATE 324 MG TAB PO SCH ×3 (07:42→17:59)
[2017-05-05] MEDS: PIRFENIDONE 267 MG PO SCH ×4 (07:43→17:58)
[2017-05-05] MEDS: ESCITALOPRAM OXALATE 10 MG TAB PO SCH (07:44)
[2017-05-05] MEDS: PANTOprazole SOD 40 MG TAB PO SCH (07:44)
[2017-05-05] MEDS: CHOLECALCIFEROL 1000 INTER.UNIT TAB PO SCH (07:46)
[2017-05-05] MEDS: CALCIUM 600MG + VIT D 400 IU TAB PO SCH (07:46)
[2017-05-05] MEDS ORDERED: ESTER C 500 MG PO SCH (09:00)
[2017-05-05] MEDS ORDERED: PANTOprazole SOD 40 MG TAB PO SCH (09:00)
--- NOTE | 2017-05-05 09:06 | Critical Care Progress Note ---
Critical Care Progress Note Date of Service May 05, 2017. Attending Dr. Rodriguez Subjective the pt is doing better, no sob or chest pain, no dizziness, no palpitation, no abdominal pain, minimal 3/10 pain in the right shoulder , post op day 1. Objective no events overnight, now more hypertensive. Current SOFA Score SOFA Score Response (Comments) Value PaO2/FiO2 (mmHg) < 400 1 SaO2 / FIO2 221 - 301 1 Platelets (x10) > 150 0 Bilirubin (mg/dL) < 1.2 0 [place] Coma Score 15 0 Level of Hypotension No Hypotension 0 Creatinine (mg/dL) < 1.2 0 Total 2 Assessment & Plan 1- brief hypotension , Iatrogenic. resolved, now hypertensive, although she does not have a hx of it. 2- IPF on Pirfenidone and O2 PRN at home. 3- right humerous fx s/p surgical repair post op day 1. Plan: 1- stop Morphine. 2- Oxycodone 5 mg every 4 hrs prn for pain > 4/10. 3- dc tylenol 1 gm dose and continue with 650 mg every 4 hrs prn. 4- dc Ativan. 5- dc Reglan. 6- continue Zofran if needed. 7- NS at 80 ml/hr, oral intake is adequate , will stop it. 8- if BP persists to be elevated, add low dose lopressor po. 9- continue pirfenidone. 10- continue O2 24/7 regardless of her O2 sat. 11- Pt consult. 12- disposition plan per Dr. Novak. 13- discussed with the staff on rounds in details. discussed with the pt in details, all her questions been answered. CCT 35 min. Consults & Procedures Consultants: ccm, ortho, anesthesia. Procedures: right shoulder surgery. Data Medications: Current Inpatient Medications Medications (Trade) Dose Ordered Sig/José Miguel Route Start Time Stop Time Status Last Admin Dose Admin Calcium/Vitamin D (Caltrate Plus Tab) 1 tab QAM PO 05/05/17 09:00 06/04/17 08:59 Cholecalciferol (Vitamin D Tab) 2,000 inter.unit QAM PO 05/05/17 09:00 06/04/17 08:59 Escitalopram Oxalate (Lexapro Tab) 10 mg QAM PO 05/05/17 09:00 06/04/17 08:59 05/05/17 07:44 10 MG Levothyroxine Sodium (Synthroid Tab) 50 mcg DAILYBB PO 05/05/17 06:00 06/04/17 05:59 05/05/17 05:12 50 MCG Pantoprazole Sodium (Protonix Tab) 40 mg QAM PO 05/05/17 09:00 06/04/17 08:59 05/05/17 07:44 40 MG Miscellaneous Information (Order Awaiting Action) 1 ea QS N/A 05/05/17 00:00 06/04/17 00:00 Metoclopramide HCl (Reglan Inj) 10 mg Q6H PRN IV 05/04/17 15:15 06/03/17 15:14 Ondansetron HCl (Zofran Inj) 4 mg Q6H PRN IV 05/04/17 15:15 06/03/17 15:14 Al Hydroxide/Mg Hydroxide (Maalox Susp) 30 ml Q4H PRN PO 05/04/17 15:15 06/03/17 15:14 Acetaminophen (Tylenol Tab) 1,000 mg Q8 PO 05/04/17 22:00 06/03/17 21:59 05/05/17 05:11 1,000 MG Magnesium Hydroxide (Milk Of Magnesia Susp) 30 ml Q6H PRN PO 05/04/17 15:15 06/03/17 15:14 Ferrous Gluconate (Ferrous Gluconate Tab) 324 mg TIDM PO 05/04/17 18:00 06/03/17 17:59 05/05/17 07:42 324 MG Ketorolac Tromethamine (Toradol Inj) 15 mg Q6H IM 05/04/17 15:15 05/05/17 16:00 Sodium Chloride 1,000 ml @ 80 mls/hr [id number] IV 05/04/17 17:27 06/03/17 17:26 05/04/17 20:37 80 MLS/HR Acetaminophen (Tylenol Tab) 650 mg Q4H PRN PO 05/04/17 17:30 06/03/17 17:29 05/05/17 07:40 650 MG Lorazepam (Ativan Tab) 0.5 mg Q4H PRN PO 05/04/17 17:30 06/03/17 17:29 Lorazepam (Ativan Inj) 0.5 mg Q4H PRN IV 05/04/17 17:30 06/03/17 17:29 Lorazepam (Ativan Inj) 1 mg Q6H PRN IV 05/04/17 17:30 06/03/17 17:29 Norepinephrine Bitartrate 8 mg/ Dextrose 508 ml @ 0 mls/hr Q0M PRN IV 05/04/17 17:45 06/03/17 17:44 Oxycodone HCl (Roxicodone Immediate Rel Tab) 5 mg Q4H PRN PO 05/05/17 08:15 05/19/17 08:14 Vital Signs: Date Time Temp Pulse Resp B/P (MAP) Pulse Ox O2 Delivery O2 Flow Rate FiO2 05/05/17 06:01 69 22 153/77 (102) 100 05/05/17 06:00 67 25 100 05/05/17 05:02 88 23 170/86 (114) 99 05/05/17 05:00 36.5 100 22 87 05/05/17 04:11 99 Nasal Cannula 3.0 05/05/17 04:01 63 26 146/64 (91) 100 05/05/17 04:00 63 24 100 05/05/17 03:01 59 21 144/54 (84) 100 05/05/17 03:00 60 22 100 05/05/17 02:01 58 19 141/59 (86) 100 05/05/17 02:00 58 21 100 05/05/17 01:01 61 25 125/52 (76) 100 05/05/17 01:00 59 22 100 05/05/17 00:01 36.5 63 21 159/55 (89) 100 05/05/17 00:00 60 20 100 05/05/17 00:00 99 Nasal Cannula 3.0 05/04/17 23:01 61 25 145/57 (86) 100 05/04/17 23:00 58 23 100 05/04/17 23:00 58 23 100 05/04/17 22:01 72 18 139/86 (103) 97 05/04/17 22:00 73 39 99 05/04/17 21:39 64 35 166/80 (108) 05/04/17 21:00 67 25 98 05/04/17 20:00 36.4 61 25 99 Nasal Cannula 3.0 05/04/17 20:00 99 Nasal Cannula 3.0 05/04/17 19:02 100/54 (69) 05/04/17 18:50 36.5 74 25 120/72 (88) 99 Nasal Cannula 3.0 05/04/17 18:22 59 16 05/04/17 18:22 59 16 99 17 18:21 100/63 17 18:17 60 16 05/04/17 18:17 59 16 99 17 18:16 109/61 17 18:12 71 31 99 17 18:12 71 31 05/04/17 18:11 104/46 05/04/17 18:07 59 27 99 05/04/17 18:07 58 27 05/04/17 18:06 99/60 05/04/17 18:02 59 27 99 05/04/17 18:02 59 27 05/04/17 18:01 114/61 05/04/17 17:57 59 26 99 05/04/17 17:57 59 26 05/04/17 17:56 99/56 05/04/17 17:52 60 25 05/04/17 17:52 61 25 99 05/04/17 17:51 94/60 05/04/17 17:49 62 16 05/04/17 17:49 62 16 99 17 17:47 94/55 05/04/17 17:44 64 30 99 05/04/17 17:44 64 30 05/04/17 17:39 63 24 99 05/04/17 17:39 63 24 17 17:38 93/58 17 17:36 73/59 17 17:34 62 31 99 17 17:34 62 31 05/04/17 17:31 97/56 17 17:29 81 16 17 17:29 81 16 94 17 17:27 112/55 17 17:24 67 20 98 17 17:24 68 20 17 17:21 98/64 17 17:19 66 20 100 17 17:19 67 20 17 17:16 87/64 9/22/17 17:14 56 27 9/22/17 17:14 56 27 100 9/22/17 17:11 95/60 9/22/17 17:09 59 25 9/22/17 17:09 59 25 100 9/22/17 17:08 58 9 9/22/17 17:08 59 9 100 9/22/17 17:06 83/55 9/22/17 17:03 63 28 100 9/22/17 17:03 63 28 9/22/17 17:01 89/58 9/22/17 16:58 58 25 9/22/17 16:58 58 25 100 9/22/17 16:56 82/50 9/22/17 16:53 58 31 9/22/17 16:53 57 31 100 9/22/17 16:52 58 31 9/22/17 16:52 58 31 100 9/22/17 16:51 63 30 9/22/17 16:51 62 30 74/49 100 9/22/17 16:48 68/40 9/22/17 16:46 59 30 9/22/17 16:46 59 30 100 9/22/17 16:44 84/50 9/22/17 16:41 61 32 104/55 100 9/22/17 16:41 61 32 9/22/17 16:38 69/46 9/22/17 16:36 63 27 100 9/22/17 16:36 63 27 9/22/17 16:35 100/60 9/22/17 16:34 65 31 9/22/17 16:34 64 31 99 9/22/17 16:33 66/44 9/22/17 16:30 67 29 9/22/17 16:30 67 29 99 9/22/17 16:26 100/41 9/22/17 16:25 70 32 9/22/17 16:25 70 32 100 9/22/17 16:24 /43 9/22/17 16:21 72/52 9/22/17 16:20 66 34 99 9/22/17 16:20 66 34 9/22/17 16:19 71/50 9/22/17 16:15 66 34 9/22/17 16:15 66 34 100 9/22/17 16:10 67 35 55/36 100 9/22/17 16:10 67 35 9/22/17 16:09 76/47 05/04/17 16:07 92/ 05/04/17 16:05 65 30 57/46 100 05/04/17 16:05 65 30 05/04/17 16:04 74/46 05/04/17 16:02 70/55 05/04/17 16:00 57 33 109/59 100 05/04/17 16:00 57 33 05/04/17 15:58 110/64 05/04/17 15:56 57/39 05/04/17 15:55 71 31 05/04/17 15:55 71 31 50/35 100 05/04/17 15:53 56/42 05/04/17 15:50 72 30 100 05/04/17 15:50 36.2 72 16 110/64 100 Mask 10 05/04/17 15:50 72 30 05/04/17 09:24 36.5 79 20 119/77 94 Room Air Laboratory Results: Last 24 Hours Test 05/04/17 18:38 05/05/17 00:05 05/05/17 01:21 05/05/17 05:44 Bedside Glucose 80 mg/dl 107 mg/dl 77 mg/dl White Blood Count 9.99 K/uL Red Blood Count 3.16 M/uL Hemoglobin 9.4 g/dL Hematocrit 28.8 % Mean Corpuscular Volume 91.1 fL Mean Corpuscular Hemoglobin 29.7 pg Mean Corpuscular Hemoglobin Concent 32.6 g/dl Platelet Count 279 K/uL Mean Platelet Volume 8.1 fL Neutrophils (%) (Auto) 78.7 % Lymphocytes (%) (Auto) 12.1 % Monocytes (%) (Auto) 8.4 % Eosinophils (%) (Auto) 0.1 % Basophils (%) (Auto) 0.1 % Neutrophils # (Auto) 7.86 K/uL Lymphocytes # (Auto) 1.21 K/uL Monocytes # (Auto) 0.84 K/uL Eosinophils # (Auto) 0.01 K/uL Basophils # (Auto) 0.01 K/uL RDW Standard Deviation 50.6 fL RDW Coefficient of Variation 15.3 % Immature Granulocyte % (Auto) 0.6 % Immature Granulocyte # (Auto) 0.06 K/uL Sodium Level 141 mmol/L Potassium Level 4.6 mmol/L Chloride Level 108 mmol/L Carbon Dioxide Level 28 mmol/L Anion Gap 5.0 mmol/L Blood Urea Nitrogen 10 mg/dl Creatinine 0.59 mg/dl Est Creatinine Clear Calc Drug Dose 64.5 ml/min Estimated GFR () 102.5 Estimated GFR (Non- 88.4 BUN/Creatinine Ratio 16.9 Random Glucose 97 mg/dl Calcium Level 7.8 mg/dl Troponin I 0.027 ng/ml
--- NOTE | 2017-05-05 09:36 | Orthopedic Progress Note ---
Orthopedic Progress Note Date of Service May 05, 2017. Subjective Post OP Day: 1 Reports: feeling well Objective N/V intact (Fingers mobile), dressing C/D/I (Hemovac in place) Date Time Temp Pulse Resp B/P (MAP) Pulse Ox O2 Delivery O2 Flow Rate FiO2 05/05/17 06:01 69 22 153/77 (102) 100 05/05/17 06:00 67 25 100 05/05/17 05:02 88 23 170/86 (114) 99 05/05/17 05:00 36.5 100 22 87 05/05/17 04:11 99 Nasal Cannula 3.0 05/05/17 04:01 63 26 146/64 (91) 100 05/05/17 04:00 63 24 100 05/05/17 03:01 59 21 144/54 (84) 100 05/05/17 03:00 60 22 100 05/05/17 02:01 58 19 141/59 (86) 100 05/05/17 02:00 58 21 100 05/05/17 01:01 61 25 125/52 (76) 100 05/05/17 01:00 59 22 100 05/05/17 00:01 36.5 63 21 159/55 (89) 100 05/05/17 00:00 60 20 100 05/05/17 00:00 99 Nasal Cannula 3.0 05/04/17 23:01 61 25 145/57 (86) 100 05/04/17 23:00 58 23 100 05/04/17 23:00 58 23 100 05/04/17 22:01 72 18 139/86 (103) 97 05/04/17 22:00 73 39 99 05/04/17 21:39 64 35 166/80 (108) 05/04/17 21:00 67 25 98 05/04/17 20:00 36.4 61 25 99 Nasal Cannula 3.0 05/04/17 20:00 99 Nasal Cannula 3.0 05/04/17 19:02 100/54 (69) 05/04/17 18:50 36.5 74 25 120/72 (88) 99 Nasal Cannula 3.0 05/04/17 18:22 59 16 05/04/17 18:22 59 16 99 05/04/17 18:21 100/63 05/04/17 18:17 60 16 9/22/17 18:17 59 16 99 /22/17 18:16 109/61 22/17 18:12 71 31 99 /22/17 18:12 71 31 05/04/17 18:11 104/46 22/17 18:07 59 27 99 /22/17 18:07 58 27 22/17 18:06 99/60 22/17 18:02 59 27 99 22/17 18:02 59 27 22/17 18:01 114/61 22/17 17:57 59 26 99 22/17 17:57 59 26 22/17 17:56 99/56 22/17 17:52 60 25 22/17 17:52 61 25 99 22/17 17:51 94/60 05/04/17 17:49 62 16 05/04/17 17:49 62 16 99 05/04/17 17:47 94/55 05/04/17 17:44 64 30 99 05/04/17 17:44 64 30 22/17 17:39 63 24 99 22/17 17:39 63 24 05/04/17 17:38 93/58 22/17 17:36 73/59 05/04/17 17:34 62 31 99 05/04/17 17:34 62 31 05/04/17 17:31 97/56 05/04/17 17:29 81 16 05/04/17 17:29 81 16 94 05/04/17 17:27 112/55 05/04/17 17:24 67 20 98 22/17 17:24 68 20 22/17 17:21 98/64 22/17 17:19 66 20 100 22/17 17:19 67 20 22/17 17:16 87/64 05/04/17 17:14 56 27 05/04/17 17:14 56 27 100 22/17 17:11 95/60 22/17 17:09 59 25 22/17 17:09 59 25 100 22/17 17:08 58 9 22/17 17:08 59 9 100 22/17 17:06 83/55 05/04/17 17:03 63 28 100 9/22/17 17:03 63 28 9/22/17 17:01 89/58 9/22/17 16:58 58 25 9/22/17 16:58 58 25 100 9/22/17 16:56 82/50 9/22/17 16:53 58 31 9/22/17 16:53 57 31 100 9/22/17 16:52 58 31 9/22/17 16:52 58 31 100 9/22/17 16:51 63 30 9/22/17 16:51 62 30 74/49 100 9/22/17 16:48 68/40 9/22/17 16:46 59 30 9/22/17 16:46 59 30 100 9/22/17 16:44 84/50 9/22/17 16:41 61 32 104/55 100 9/22/17 16:41 61 32 9/22/17 16:38 69/46 9/22/17 16:36 63 27 100 9/22/17 16:36 63 27 9/22/17 16:35 100/60 9/22/17 16:34 65 31 9/22/17 16:34 64 31 99 9/22/17 16:33 66/44 9/22/17 16:30 67 29 9/22/17 16:30 67 29 99 9/22/17 16:26 100/41 9/22/17 16:25 70 32 9/22/17 16:25 70 32 100 9/22/17 16:24 /43 9/22/17 16:21 72/52 9/22/17 16:20 66 34 99 9/22/17 16:20 66 34 9/22/17 16:19 71/50 9/22/17 16:15 66 34 9/22/17 16:15 66 34 100 9/22/17 16:10 67 35 55/36 100 9/22/17 16:10 67 35 9/22/17 16:09 76/47 9/22/17 16:07 92/ 9/22/17 16:05 65 30 57/46 100 9/22/17 16:05 65 30 9/22/17 16:04 74/46 9/22/17 16:02 70/55 9/22/17 16:00 57 33 109/59 100 9/22/17 16:00 57 33 9/22/17 15:58 110/64 05/04/17 15:56 57/39 05/04/17 15:55 71 31 05/04/17 15:55 71 31 50/35 100 05/04/17 15:53 56/42 05/04/17 15:50 72 30 100 05/04/17 15:50 36.2 72 16 110/64 100 Mask 10 05/04/17 15:50 72 30 Laboratory Results 24 Hours: Test 05/05/17 01:21 White Blood Count 9.99 K/uL Red Blood Count 3.16 M/uL Hemoglobin 9.4 g/dL Hematocrit 28.8 % Mean Corpuscular Volume 91.1 fL Mean Corpuscular Hemoglobin 29.7 pg Mean Corpuscular Hemoglobin Concent 32.6 g/dl Platelet Count 279 K/uL Mean Platelet Volume 8.1 fL Neutrophils (%) (Auto) 78.7 % Lymphocytes (%) (Auto) 12.1 % Monocytes (%) (Auto) 8.4 % Eosinophils (%) (Auto) 0.1 % Basophils (%) (Auto) 0.1 % Neutrophils # (Auto) 7.86 K/uL Lymphocytes # (Auto) 1.21 K/uL Monocytes # (Auto) 0.84 K/uL Eosinophils # (Auto) 0.01 K/uL Basophils # (Auto) 0.01 K/uL Assessment & Plan Assessment: 76 yo female stable POD #1 s/p right shoulder reverse TSA Plan: 1. Med management 2. DVT prophylaxis- SCDs 3. PT/OT 4. D/C planning- pt [facility]
[2017-05-05] MEDS ORDERED: NURSING VERBAL MED ORDER ONE (12:15)
[2017-05-05] MEDS: OXYCODONE HCL IR 5 MG TAB (IMMEDIATE RELEASE) PO PRN ×3 (12:41→23:58)
--- NOTE | 2017-05-05 14:47 | Progress Note ---
Subjective Date of Service: May 05, 2017. Subjective this pt is in good condition and her blood pressure has returned to normal if not high Review of Systems Constitutional: No fever, No chills Respiratory: No cough, No wheezing, No shortness of breath, No dyspnea on exertion Cardiac: No chest pain, No edema Objective Vital Signs Date Time Temp Pulse Resp B/P (MAP) Pulse Ox O2 Delivery O2 Flow Rate FiO2 05/05/17 14:11 85 99 05/05/17 11:44 110/71 (84) 05/05/17 11:35 70/50 (57) 05/05/17 11:25 36.8 69 16 78/48 (58) 89 Room Air 05/05/17 08:00 36.6 88 25 142/89 (106) 99 05/05/17 08:00 99 Room Air 05/05/17 06:01 69 22 153/77 (102) 100 05/05/17 06:00 67 25 100 05/05/17 05:02 88 23 170/86 (114) 99 05/05/17 05:00 36.5 100 22 87 05/05/17 04:11 99 Nasal Cannula 3.0 05/05/17 04:01 63 26 146/64 (91) 100 05/05/17 04:00 63 24 100 05/05/17 03:01 59 21 144/54 (84) 100 05/05/17 03:00 60 22 100 05/05/17 02:01 58 19 141/59 (86) 100 05/05/17 02:00 58 21 100 05/05/17 01:01 61 25 125/52 (76) 100 05/05/17 01:00 59 22 100 05/05/17 00:01 36.5 63 21 159/55 (89) 100 05/05/17 00:00 60 20 100 05/05/17 00:00 99 Nasal Cannula 3.0 05/04/17 23:01 61 25 145/57 (86) 100 05/04/17 23:00 58 23 100 05/04/17 23:00 58 23 100 05/04/17 22:01 72 18 139/86 (103) 97 05/04/17 22:00 73 39 99 05/04/17 21:39 64 35 166/80 (108) 05/04/17 21:00 67 25 98 05/04/17 20:00 36.4 61 25 99 Nasal Cannula 3.0 05/04/17 20:00 99 Nasal Cannula 3.0 05/04/17 19:02 100/54 (69) 17 18:50 36.5 74 25 120/72 (88) 99 Nasal Cannula 3.0 05/04/17 18:22 59 16 17 18:22 59 16 99 17 18:21 100/63 17 18:17 60 16 05/04/17 18:17 59 16 99 17 18:16 109/61 05/04/17 18:12 71 31 99 05/04/17 18:12 71 31 05/04/17 18:11 104/46 05/04/17 18:07 59 27 99 17 18:07 58 27 05/04/17 18:06 99/60 17 18:02 59 27 99 05/04/17 18:02 59 27 05/04/17 18:01 114/61 05/04/17 17:57 59 26 99 17 17:57 59 26 05/04/17 17:56 99/56 05/04/17 17:52 60 25 05/04/17 17:52 61 25 99 17 17:51 94/60 17 17:49 62 16 05/04/17 17:49 62 16 99 17 17:47 94/55 17 17:44 64 30 99 17 17:44 64 30 17 17:39 63 24 99 17 17:39 63 24 17 17:38 93/58 17 17:36 73/59 17 17:34 62 31 99 17 17:34 62 31 17 17:31 97/56 17 17:29 81 16 05/04/17 17:29 81 16 94 17 17:27 112/55 05/04/17 17:24 67 20 98 05/04/17 17:24 68 20 05/04/17 17:21 98/64 17 17:19 66 20 100 9/22/17 17:19 67 20 9/22/17 17:16 87/64 9/22/17 17:14 56 27 9/22/17 17:14 56 27 100 9/22/17 17:11 95/60 9/22/17 17:09 59 25 9/22/17 17:09 59 25 100 9/22/17 17:08 58 9 9/22/17 17:08 59 9 100 9/22/17 17:06 83/55 922/17 17:03 63 28 100 9/22/17 17:03 63 28 9/22/17 17:01 89/58 9/22/17 16:58 58 25 9/22/17 16:58 58 25 100 9/22/17 16:56 82/50 9/22/17 16:53 58 31 9/22/17 16:53 57 31 100 9/22/17 16:52 58 31 9/22/17 16:52 58 31 100 9/22/17 16:51 63 30 9/22/17 16:51 62 30 74/49 100 9/22/17 16:48 68/40 9/22/17 16:46 59 30 9/22/17 16:46 59 30 100 9/22/17 16:44 84/50 9/22/17 16:41 61 32 104/55 100 9/22/17 16:41 61 32 9/22/17 16:38 69/46 9/22/17 16:36 63 27 100 9/22/17 16:36 63 27 9/22/17 16:35 100/60 9/22/17 16:34 65 31 9/22/17 16:34 64 31 99 9/22/17 16:33 66/44 9/22/17 16:30 67 29 9/22/17 16:30 67 29 99 9/22/17 16:26 100/41 9/22/17 16:25 70 32 9/22/17 16:25 70 32 100 9/22/17 16:24 /43 9/22/17 16:21 72/52 9/22/17 16:20 66 34 99 9/22/17 16:20 66 34 9/22/17 16:19 71/50 9/22/17 16:15 66 34 9/22/17 16:15 66 34 100 9/22/17 16:10 67 35 55/36 100 05/04/17 16:10 67 35 05/04/17 16:09 76/47 05/04/17 16:07 92/ 05/04/17 16:05 65 30 57/46 100 05/04/17 16:05 65 30 05/04/17 16:04 74/46 05/04/17 16:02 70/55 05/04/17 16:00 57 33 109/59 100 05/04/17 16:00 57 33 05/04/17 15:58 110/64 05/04/17 15:56 57/39 05/04/17 15:55 71 31 05/04/17 15:55 71 31 50/35 100 05/04/17 15:53 56/42 05/04/17 15:50 72 30 100 05/04/17 15:50 36.2 72 16 110/64 100 Mask 10 05/04/17 15:50 72 30 Physical Exam General Appearance: WD/WN, + mild distress Eyes: PERRL, EOMI Neck: supple, no JVD Respiratory/Chest: chest non-tender, lungs clear, normal breath sounds Cardiovascular: regular rate, rhythm, no murmur Abdomen: normal bowel sounds, non tender, soft Laboratory Results Last 24 Hours Test 05/04/17 18:38 05/05/17 00:05 05/05/17 01:21 05/05/17 05:44 Bedside Glucose 80 mg/dl 107 mg/dl 77 mg/dl White Blood Count 9.99 K/uL Red Blood Count 3.16 M/uL Hemoglobin 9.4 g/dL Hematocrit 28.8 % Mean Corpuscular Volume 91.1 fL Mean Corpuscular Hemoglobin 29.7 pg Mean Corpuscular Hemoglobin Concent 32.6 g/dl Platelet Count 279 K/uL Mean Platelet Volume 8.1 fL Neutrophils (%) (Auto) 78.7 % Lymphocytes (%) (Auto) 12.1 % Monocytes (%) (Auto) 8.4 % Eosinophils (%) (Auto) 0.1 % Basophils (%) (Auto) 0.1 % Neutrophils # (Auto) 7.86 K/uL Lymphocytes # (Auto) 1.21 K/uL Monocytes # (Auto) 0.84 K/uL Eosinophils # (Auto) 0.01 K/uL Basophils # (Auto) 0.01 K/uL RDW Standard Deviation 50.6 fL RDW Coefficient of Variation 15.3 % Immature Granulocyte % (Auto) 0.6 % Immature Granulocyte # (Auto) 0.06 K/uL Sodium Level 141 mmol/L Potassium Level 4.6 mmol/L Chloride Level 108 mmol/L Carbon Dioxide Level 28 mmol/L Anion Gap 5.0 mmol/L Blood Urea Nitrogen 10 mg/dl Creatinine 0.59 mg/dl Est Creatinine Clear Calc Drug Dose 64.5 ml/min Estimated GFR () 102.5 Estimated GFR (Non- 88.4 BUN/Creatinine Ratio 16.9 Random Glucose 97 mg/dl Calcium Level 7.8 mg/dl Troponin I 0.027 ng/ml Test 05/05/17 09:11 Troponin I 0.018 ng/ml Assessment and Plan 76-year-old female status post shoulder replacement surgery with postoperative hypotension-> resolved Pt is slightly hypertensive but with not complaints will use hydralazine prn 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
[2017-05-06] MEDS: OXYCODONE HCL IR 5 MG TAB (IMMEDIATE RELEASE) PO PRN ×4 (04:02→22:17)
[2017-05-06] MEDS: LEVOTHYROXINE 50 MCG TAB PO SCH (05:51)
[2017-05-06 07:01] VITALS: BP_SYST 73; BP_SYST 94; BP_DIAS 39; BP_DIAS 61; PULSE 49; PULSE 93; TEMP 36.5; O2SAT 93
[2017-05-06] MEDS: CHOLECALCIFEROL 1000 INTER.UNIT TAB PO SCH (07:53)
[2017-05-06] MEDS: CALCIUM 600MG + VIT D 400 IU TAB PO SCH (07:53)
[2017-05-06] MEDS: ESCITALOPRAM OXALATE 10 MG TAB PO SCH (07:55)
[2017-05-06] MEDS: PANTOprazole SOD 40 MG TAB PO SCH (07:55)
[2017-05-06] MEDS: PIRFENIDONE 267 MG PO SCH ×3 (07:55→17:53)
[2017-05-06] MEDS: FERROUS GLUCONATE 324 MG TAB PO SCH ×3 (07:55→17:53)
[2017-05-06 08:06] LABS: BASO % 0.2 %; BASO ABS # 0.02 K/uL (0-0.2); COMPLETE YES; HEMATOCRIT 36.9 % (37-47); IG% 0.4 %; LYMPH % 13.4 %; LYMPH ABS # 1.64 K/uL (1.2-3.4); MEAN CELL VOLUME 92.3 fL (80-100); MEAN CORPUSCULAR HGB CONC 32.5 g/dl (32-36); MEAN PLATELET VOLUME 8.2 fL (7.4-10.4); MONO % 8.7 %; NEUT % 74.3 %; PLATELET COUNT 331 K/uL (130-400); WHITE BLOOD COUNT 12.22 K/uL (4.8-10.8)
[2017-05-06 08:23] LABS: BUN/CREATININE RATIO 10.7 (10-20); CALCIUM 8.7 mg/dl (8.5-10.1); CREATININE 0.75 mg/dl (0.60-1.20)
--- NOTE | 2017-05-06 08:42 | Orthopedic Progress Note ---
Orthopedic Progress Note Date of Service May 06, 2017. Subjective Post OP Day: 2 Reports: feeling well (Hypotensive BP) Objective calves soft nontender, N/V intact, dressing C/D/I (hemovac in place), toes mobile Date Time Temp Pulse Resp B/P (MAP) Pulse Ox O2 Delivery O2 Flow Rate FiO2 05/06/17 07:01 36.5 49 18 73/39 (50) 93 Nasal Cannula 2.0 93 94/61 (72) 05/06/17 00:00 Nasal Cannula 3.0 05/05/17 23:00 36.9 80 16 105/70 (82) 100 Nasal Cannula 2.0 05/05/17 16:10 Nasal Cannula 3.0 05/05/17 16:00 92/56 (68) 100 Nasal Cannula 3.0 05/05/17 15:09 36.4 86 18 88/58 (68) 85 Nasal Cannula 3.0 05/05/17 14:11 85 99 05/05/17 11:44 110/71 (84) 05/05/17 11:35 70/50 (57) 05/05/17 11:25 36.8 69 16 78/48 (58) 89 Room Air Laboratory Results 24 Hours: Test 05/06/17 07:36 White Blood Count 12.22 K/uL Red Blood Count 4.00 M/uL Hemoglobin 12.0 g/dL Hematocrit 36.9 % Mean Corpuscular Volume 92.3 fL Mean Corpuscular Hemoglobin 30.0 pg Mean Corpuscular Hemoglobin Concent 32.5 g/dl Platelet Count 331 K/uL Mean Platelet Volume 8.2 fL Neutrophils (%) (Auto) 74.3 % Lymphocytes (%) (Auto) 13.4 % Monocytes (%) (Auto) 8.7 % Eosinophils (%) (Auto) 3.0 % Basophils (%) (Auto) 0.2 % Neutrophils # (Auto) 9.08 K/uL Lymphocytes # (Auto) 1.64 K/uL Monocytes # (Auto) 1.06 K/uL Eosinophils # (Auto) 0.37 K/uL Basophils # (Auto) 0.02 K/uL Assessment & Plan Assessment: 76 yo female stable POD #2 s/p right shoulder reverse TSA, hypotension Plan: 1. Med management 2. DVT prophylaxis- SCDs 3. PT/OT 4. D/C planning- [facility]
[2017-05-06 09:01] LABS: POTASSIUM 3.9 mmol/L (3.5-5.1)
--- NOTE | 2017-05-06 13:56 | Progress Note ---
Subjective Date of Service: May 06, 2017. Subjective pt feels back to her baseline is concerned about going home and being able to care for herself Review of Systems Constitutional: + weakness, No fever, No chills Respiratory: No cough, No shortness of breath, No dyspnea on exertion Cardiac: No chest pain, No edema, No claudication Objective Vital Signs Date Time Temp Pulse Resp B/P (MAP) Pulse Ox O2 Delivery O2 Flow Rate FiO2 05/06/17 08:39 Nasal Cannula 2.0 05/06/17 07:01 36.5 49 18 73/39 (50) 93 Nasal Cannula 2.0 93 94/61 (72) 05/06/17 00:00 Nasal Cannula 3.0 05/05/17 23:00 36.9 80 16 105/70 (82) 100 Nasal Cannula 2.0 05/05/17 16:10 Nasal Cannula 3.0 05/05/17 16:00 92/56 (68) 100 Nasal Cannula 3.0 05/05/17 15:09 36.4 86 18 88/58 (68) 85 Nasal Cannula 3.0 05/05/17 14:11 85 99 Physical Exam General Appearance: WD/WN, + mild distress Eyes: PERRL, EOMI Respiratory/Chest: chest non-tender, lungs clear, normal breath sounds Cardiovascular: regular rate, rhythm, no murmur Abdomen: normal bowel sounds, non tender, soft Neurologic/Psychiatric: alert, oriented x 3 Laboratory Results Last 24 Hours Test 05/06/17 07:35 05/06/17 07:36 Sodium Level 138 mmol/L Potassium Level 3.9 mmol/L Chloride Level 103 mmol/L Carbon Dioxide Level 28 mmol/L Anion Gap 7.0 mmol/L Blood Urea Nitrogen 8 mg/dl Creatinine 0.75 mg/dl Est Creatinine Clear Calc Drug Dose 50.7 ml/min Estimated GFR () 89.1 Estimated GFR (Non- 76.9 BUN/Creatinine Ratio 10.7 Random Glucose 107 mg/dl Calcium Level 8.7 mg/dl White Blood Count 12.22 K/uL Red Blood Count 4.00 M/uL Hemoglobin 12.0 g/dL Hematocrit 36.9 % Mean Corpuscular Volume 92.3 fL Mean Corpuscular Hemoglobin 30.0 pg Mean Corpuscular Hemoglobin Concent 32.5 g/dl Platelet Count 331 K/uL Mean Platelet Volume 8.2 fL Neutrophils (%) (Auto) 74.3 % Lymphocytes (%) (Auto) 13.4 % Monocytes (%) (Auto) 8.7 % Eosinophils (%) (Auto) 3.0 % Basophils (%) (Auto) 0.2 % Neutrophils # (Auto) 9.08 K/uL Lymphocytes # (Auto) 1.64 K/uL Monocytes # (Auto) 1.06 K/uL Eosinophils # (Auto) 0.37 K/uL Basophils # (Auto) 0.02 K/uL RDW Standard Deviation 52.2 fL RDW Coefficient of Variation 15.9 % Immature Granulocyte % (Auto) 0.4 % Immature Granulocyte # (Auto) 0.05 K/uL Assessment and Plan 76-year-old female status post shoulder replacement surgery with postoperative hypotension-> resolved hypotension, asymptomatic, no intervention is recommended Pulmicort fibrosis 3 L supplemental oxygen and will continue her perfenidone Her hypothyroidism is stable on Synthroid
[2017-05-06 15:15] VITALS: BP 75/55; PULSE 83; TEMP 36.7; O2SAT 92
[2017-05-06 15:35] VITALS: BP 85/59
[2017-05-06 23:10] VITALS: BP_SYST 72; BP_DIAS 48; BP_DIAS 51; PULSE 99; TEMP 37; O2SAT 91
[2017-05-07] VITALS (8 sets, daily range): BP systolic 85–130; BP diastolic 54–69; PULSE 78–94; TEMP 36.4–36.7; O2SAT 90–94
[2017-05-07] MEDS: LEVOTHYROXINE 50 MCG TAB PO SCH (05:46)
[2017-05-07 06:28] LABS: BASO % 0.2 %; BASO ABS # 0.03 K/uL (0-0.2); COMPLETE YES; EOS % 1.7 %; HEMATOCRIT 31.2 % (37-47); IG% 0.5 %; LYMPH % 23.4 %; LYMPH ABS # 2.97 K/uL (1.2-3.4); MEAN CORPUSCULAR HEMOGLOBIN 29.7 pg (25-34); MEAN CORPUSCULAR HGB CONC 32.7 g/dl (32-36); MEAN PLATELET VOLUME 8.3 fL (7.4-10.4); NEUT % 65.2 %; PLATELET COUNT 348 K/uL (130-400); RED BLOOD COUNT 3.43 M/uL (4.2-5.4); WHITE BLOOD COUNT 12.71 K/uL (4.8-10.8)
--- NOTE | 2017-05-07 07:05 | Orthopedic Progress Note ---
Orthopedic Progress Note Date of Service May 07, 2017. Subjective Post OP Day: 3 Reports: feeling well, pain controlled w PO medications, Denies: complaints, chest pain, SOB, nausea / vomiting, light headedness, calf pain Objective calves soft nontender, capillary refill less than 2 sec., dressing C/D/I, A&O x3 , toes mobile BP showed hypotension Date Time Temp Pulse Resp B/P (MAP) Pulse Ox O2 Delivery O2 Flow Rate FiO2 05/07/17 03:34 89 16 86/61 (69) 05/06/17 23:10 37.0 99 16 72/51 (58) 91 Room Air 72/48 (56) 05/06/17 19:13 Room Air 05/06/17 15:35 85/59 (68) 05/06/17 15:20 Room Air 05/06/17 15:15 36.7 83 16 75/55 (62) 92 Room Air 05/06/17 08:39 Nasal Cannula 2.0 Laboratory Results 24 Hours: Test 05/06/17 07:36 05/07/17 06:17 White Blood Count 12.22 K/uL 12.71 K/uL Red Blood Count 4.00 M/uL 3.43 M/uL Hemoglobin 12.0 g/dL 10.2 g/dL Hematocrit 36.9 % 31.2 % Mean Corpuscular Volume 92.3 fL 91.0 fL Mean Corpuscular Hemoglobin 30.0 pg 29.7 pg Mean Corpuscular Hemoglobin Concent 32.5 g/dl 32.7 g/dl Platelet Count 331 K/uL 348 K/uL Mean Platelet Volume 8.2 fL 8.3 fL Neutrophils (%) (Auto) 74.3 % 65.2 % Lymphocytes (%) (Auto) 13.4 % 23.4 % Monocytes (%) (Auto) 8.7 % 9.0 % Eosinophils (%) (Auto) 3.0 % 1.7 % Basophils (%) (Auto) 0.2 % 0.2 % Neutrophils # (Auto) 9.08 K/uL 8.29 K/uL Lymphocytes # (Auto) 1.64 K/uL 2.97 K/uL Monocytes # (Auto) 1.06 K/uL 1.14 K/uL Eosinophils # (Auto) 0.37 K/uL 0.22 K/uL Basophils # (Auto) 0.02 K/uL 0.03 K/uL Assessment & Plan Assessment: 76 yo female stable POD #3 s/p right shoulder reverse TSA, hypotension Plan: 1. Med management 2. DVT prophylaxis- SCDs 3. PT/OT 4. D/C planning- pt interested in [facility] Inhouse Planning Pain Management: PO Tylenol, Oxy IR DVT Prophylaxis: SCDs Discharge Planning Discharge Planning: custodial facility ([facility]) Pain Management: PO Tylenol, Oxy IR Therapy: Physical Therapy
[2017-05-07] MEDS ORDERED: RXC5 PO (07:06)
--- NOTE | 2017-05-07 07:09 | Discharge Instructions ---
Discharge Instructions Date of Service May 07, 2017. Admission Reason for Admission: Postoperative Hypotension Discharge Discharge Diagnosis / Problem: S/P Right reverse TSA Discharge Goals Goal(s): Decrease discomfort, Improve function Activity Recommendations Activity Limitations: per Instructions/Follow-up section . Instructions / Follow-Up Instructions / Follow-Up ACTIVITY RECOMMENDATIONS: SELF CARE INSTRUCTIONS AFTER TOTAL SHOULDER ARTHROPLASTY REVERSE A. You may do daily exercises as taught in physical therapy while in hospital. No lifting with the operative arm. B. You are to wear your sling/immobilizer at all times EXCEPT when performing your daily exercises and for hygiene purposes. C. You may perform dry, daily dressing changes. Please keep your incision covered. You may shower 48 hours after surgery. Do not apply soap or any ointment/ lotions directly over incision. Do not soak incision in bath tub/swimming pool. D. You may use ice as needed to operative shoulder. SPECIAL CARE INSTRUCTIONS: VERY IMPORTANT TO READ AND REVIEW A. There are a few signs you need to watch for after you are home. Call [facility] at [phone] if you experience any of the followin. Increased severe shoulder pain. Some pain is expected especially when you exercise. 2. Increased swelling in you shoulder or arm; pain or swelling in either upper extremity. 3. Any fluid drainage from the incision. 4. Shortness of breath or chest pain. B. Please call [facility] at [phone] if you have any questions or concerns about your operation or recovery. C. Call your physician if: 1. Temperature is greater than 101 degrees (F). 2. Pain is not relieved by prescribed pain medications. 3. Increase drainage or redness from incision. 4. Unanswered questions or concerns. FOLLOW UP VISIT: Please call [facility] at [phone] to schedule a follow up appointment with Dr. Pearson or his PA in 12-14 days from your surgery date. Current Hospital Diet Patient's current hospital diet: Regular Diet Discharge Diet Recommended Diet: Regular Diet Procedures Procedures Performed: Right Reverse Total Shoulder Arthroplasty; Cemented, biceps tenodesis Pending Studies Studies pending at discharge: no Laboratory Results Hemoglobin A1c Test 04/27/17 15:01 Range/Units Estimated Average Glucose 117 mg/dl Hemoglobin A1c 5.7 H 4.5-5.6 % Medical Emergencies . Who to Call and When: Medical Emergencies: If at any time you feel your situation is an emergency, please call 911 immediately. . Non-Emergent Contact Non-Emergency issues call your: Surgeon Call Non-Emergent contact if: temperature is above 101.5, your pain is worsening, wound has increased drainage, wound has increased redness . "Provider Documentation" section prepared by Wili Nam. . VTE Core Measure Inpt VTE Proph given/why not?: Treatment not indicated [place] Drug Monitoring Program Search Results: patient reviewed within database, no issues identified
--- NOTE | 2017-05-07 07:35 | Anesthesiology Progress Note ---
Anesthesia Post Op Note Date & Time May 07, 2017 at 07:34 Vital Signs Pain Intensity: 3.0 Vital Signs Past 12 Hours Date Time Temp Pulse Resp B/P (MAP) Pulse Ox O2 Delivery O2 Flow Rate FiO2 05/07/17 07:24 36.7 78 17 91/69 (76) 91 Room Air 05/07/17 03:34 89 16 86/61 (69) 05/06/17 23:10 37.0 99 16 72/51 (58) 91 Room Air 72/48 (56) Notes Mental Status: alert / awake / arousable, participated in evaluation Pt Amnestic to Procedure: Yes Nausea / Vomiting: adequately controlled Pain: adequately controlled Airway Patency, RR, SpO2: stable & adequate BP & HR: stable & adequate Hydration State: stable & adequate Anesthetic Complications: no major complications apparent
[2017-05-07] MEDS: PANTOprazole SOD 40 MG TAB PO SCH (08:45)
[2017-05-07] MEDS: ESCITALOPRAM OXALATE 10 MG TAB PO SCH (08:45)
[2017-05-07] MEDS: PIRFENIDONE 267 MG PO SCH ×3 (08:45→17:58)
[2017-05-07] MEDS: FERROUS GLUCONATE 324 MG TAB PO SCH ×3 (08:46→17:57)
[2017-05-07] MEDS: CHOLECALCIFEROL 1000 INTER.UNIT TAB PO SCH (08:46)
[2017-05-07] MEDS: CALCIUM 600MG + VIT D 400 IU TAB PO SCH (09:45)
[2017-05-07] MEDS: OXYCODONE HCL IR 5 MG TAB (IMMEDIATE RELEASE) PO PRN ×2 (09:47→16:43)
[2017-05-07] MEDS ORDERED: BISACODYL 10 MG SUPP PR ONE (10:30)
[2017-05-07 11:02] LABS: BUN/CREATININE RATIO 15.6 (10-20); CALCIUM 8.6 mg/dl (8.5-10.1); CREATININE 0.71 mg/dl (0.60-1.20); POTASSIUM 3.7 mmol/L (3.5-5.1)
[2017-05-07 11:11] LABS: THYROID STIMULATING HORMONE 13.1 uIu/ml (0.300-4.500)
--- NOTE | 2017-05-07 13:58 | Hospitalist Progress Note ---
Hospitalist Progress Note Date of Service May 07, 2017. (Corazon Gibbons PA-C) Subjective Pt evaluation today including: conversation w/ patient, physical exam, chart review, lab review, review of studies Pain: None PO Intake: Good The patient was seen and examined this morning. Pt reports feeling fairly well, she denies any feelings of lightheadedness, dizziness, flutter, palpitations or any other complaints which would explain her low BP. She was ambulating about the halls without difficulty, and has been working with PT/OT, no shoulder pain. Pt reports constipation, no BM x 3 days now. She is on 2 L O2 now for reported sat=90%. PT has hx of pulmonary fibrosis and typically wears 2L with exertional activities but at baseline and sleep wears none. Constitutional: No fever, No chills, No sweats, No fatigue Eyes: No redness ENT: No nasal symptoms, No trouble swallowing Respiratory: No cough, No sputum, No wheezing, No shortness of breath Cardiovascular: No chest pain, No edema, No palpitations Abdomen: + constipation, + problem reported (appetite improving.), No pain, No nausea, No vomiting, No diarrhea (Corazon Gibbons PA-C) Objective Vital Signs Date Time Temp Pulse Resp B/P (MAP) Pulse Ox O2 Delivery O2 Flow Rate FiO2 05/07/17 11:39 90 85/54 (64) 05/07/17 08:05 Room Air 05/07/17 07:24 36.7 78 17 91/69 (76) 91 Room Air 05/07/17 03:34 89 16 86/61 (69) 05/06/17 23:10 37.0 99 16 72/51 (58) 91 Room Air 72/48 (56) 05/06/17 19:13 Room Air 05/06/17 15:35 85/59 (68) 05/06/17 15:20 Room Air 05/06/17 15:15 36.7 83 16 75/55 (62) 92 Room Air (Corazon Gibbons PA-C) Physical Exam General Appearance: WD/WN, no apparent distress Eyes: PERRL, EOMI ENT: hearing grossly normal, pharynx normal Neck: supple, no JVD Respiratory/Chest: chest non-tender, lungs clear, no respiratory distress, no accessory muscle use, + pertinent finding (on 2 L via NC, no adventitious breath sounds) Cardiovascular: regular rate, rhythm, no murmur Abdomen: normal bowel sounds, non tender, soft Extremities: non-tender, normal inspection, no pedal edema Neurologic/Psychiatric: alert, normal mood/affect, oriented x 3 Skin: normal color, warm/dry (Corazon Gibbons PA-C) Laboratory Results Last 24 Hours Test 05/07/17 06:17 05/07/17 10:27 05/07/17 11:57 White Blood Count 12.71 K/uL Red Blood Count 3.43 M/uL Hemoglobin 10.2 g/dL Hematocrit 31.2 % Mean Corpuscular Volume 91.0 fL Mean Corpuscular Hemoglobin 29.7 pg Mean Corpuscular Hemoglobin Concent 32.7 g/dl Platelet Count 348 K/uL Mean Platelet Volume 8.3 fL Neutrophils (%) (Auto) 65.2 % Lymphocytes (%) (Auto) 23.4 % Monocytes (%) (Auto) 9.0 % Eosinophils (%) (Auto) 1.7 % Basophils (%) (Auto) 0.2 % Neutrophils # (Auto) 8.29 K/uL Lymphocytes # (Auto) 2.97 K/uL Monocytes # (Auto) 1.14 K/uL Eosinophils # (Auto) 0.22 K/uL Basophils # (Auto) 0.03 K/uL RDW Standard Deviation 52.3 fL RDW Coefficient of Variation 16.1 % Immature Granulocyte % (Auto) 0.5 % Immature Granulocyte # (Auto) 0.06 K/uL Sodium Level 135 mmol/L Potassium Level 3.7 mmol/L Chloride Level 100 mmol/L Carbon Dioxide Level 28 mmol/L Anion Gap 7.0 mmol/L Blood Urea Nitrogen 11 mg/dl Creatinine 0.71 mg/dl Est Creatinine Clear Calc Drug Dose 53.6 ml/min Estimated GFR () 95.2 Estimated GFR (Non- 82.2 BUN/Creatinine Ratio 15.6 Random Glucose 108 mg/dl Calcium Level 8.6 mg/dl Thyroid Stimulating Hormone (TSH) 13.100 uIu/ml (Corazon Gibbons PA-C) Assessment and Plan 76 yo F s/p Right Reverse Total Shoulder Arthroplasty on 05/[address] Pearson with postoperative hypotension Hypotension - BPs running low, checking random cortisol. Pt was ordered a 500 mL bolus NSS earlier today. - On review of outpatient records seems pt has chronically low BP: was 92/70 in February and 94/60 in September. Likely that the patients normal BP runs around this range. Her diet is improved today and is eating and drinking a little more. - orthostatics - not on antihypertensives - hgb drop from 12.8 to 10.2 but pt without acute complaints Constipation - Bowel regimen with daily miralax and prune juice started today, dulcolax suppository daily prn. Took suppository today but did not produce BM. 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 If cortisol normal will likely sign off. We will follow along. (Corazon Gibbons, PAMarsha) Attending Attestation: Pt seen/examined, chart reviewed, care plan d/w CHRIS Gibbons. I agree w/ the morales components of her documentation. PT w/o complaints during my visit. Denies any dizziness/lightheadedness. Reports compliance with thyroid supplementation at home. Vitals - BPs low overnight, and still low during my visit, but otherwise stable gen - nad neck - no JVD heart - RRR lungs - scant bibasilar fine rales bases abd - soft ext - right shoulder in sling; no ankle edema TSH 13 cortisol >18 Hb ~10 Cr stable A/P: 1. hypotension - based on clinic records tends to run low or low-normal. No adrenal insufficiency. H/H mildly low from blood loss but not enough to account for BP. No signs/symptoms of infectious process. Appears well hydrated. Agree with Ms. Gibbons this is likely her baseline. I did give her extra fluid today and this brought her from the 80s systolic to the 90s more consistently. Defer on additional fluids at this time. 2. decompensated hypothyroidism - TSH 2016 was normal. She reports compliance w/ meds as outpatient. increase synthroid to 75mcg daily. needs repeat TSH in 6 weeks. follow BPs overnight if stable can d/c [place] SNF [place] (Andrei Garvin MD)
[2017-05-07] MEDS ORDERED: SODIUM CHLORIDE 0.9% 500ML 500 ML IV ONE (14:15)
[2017-05-07] MEDS ORDERED: BISACODYL 10 MG SUPP PR PRN (14:45)
[2017-05-07] MEDS: POLYETHYLENE (MIRALAX) 17 GM PACK PO SCH (17:07)
[2017-05-08] MEDS: OXYCODONE HCL IR 5 MG TAB (IMMEDIATE RELEASE) PO PRN (00:51)
[2017-05-08] MEDS ORDERED: LEVOTHYROXINE 75 MCG TAB PO SCH (06:00)
[2017-05-08 07:21] VITALS: BP 91/58; PULSE 95; TEMP 37.2
[2017-05-08 07:45] VITALS: BP 143/87; PULSE 97; TEMP 37.4; O2SAT 95
[2017-05-08 08:18] LABS: BASO % 0.2 %; BASO ABS # 0.02 K/uL (0-0.2); COMPLETE YES; EOS % 3.1 %; HEMATOCRIT 35.2 % (37-47); IG% 0.4 %; LYMPH % 22.8 %; LYMPH ABS # 2.63 K/uL (1.2-3.4); MEAN CELL VOLUME 91.9 fL (80-100); MEAN CORPUSCULAR HEMOGLOBIN 29.5 pg (25-34); MEAN CORPUSCULAR HGB CONC 32.1 g/dl (32-36); MONO % 8.7 %; NEUT % 64.8 %; PLATELET COUNT 352 K/uL (130-400); RED BLOOD COUNT 3.83 M/uL (4.2-5.4); WHITE BLOOD COUNT 11.51 K/uL (4.8-10.8)
[2017-05-08] MEDS ORDERED: LEVO75TA PO (08:29)
[2017-05-08] MEDS: ESCITALOPRAM OXALATE 10 MG TAB PO SCH (08:33)
[2017-05-08] MEDS: PIRFENIDONE 267 MG PO SCH ×2 (08:33→12:36)
[2017-05-08] MEDS: CHOLECALCIFEROL 1000 INTER.UNIT TAB PO SCH (08:33)
[2017-05-08] MEDS: CALCIUM 600MG + VIT D 400 IU TAB PO SCH (08:34)
[2017-05-08] MEDS: PANTOprazole SOD 40 MG TAB PO SCH (08:34)
[2017-05-08] MEDS: FERROUS GLUCONATE 324 MG TAB PO SCH ×2 (08:34→12:36)
[2017-05-08] MEDS: POLYETHYLENE (MIRALAX) 17 GM PACK PO SCH (08:34)
--- NOTE | 2017-05-08 10:06 | Orthopedic Progress Note ---
Orthopedic Progress Note Date of Service May 08, 2017. Subjective Post OP Day: 4 Reports: feeling well, pain controlled w PO medications, Denies: complaints, chest pain, SOB, nausea / vomiting, light headedness, calf pain Objective calves soft nontender, N/V intact, capillary refill less than 2 sec., incision C /D/I, A&O x3, toes mobile Date Time Temp Pulse Resp B/P (MAP) Pulse Ox O2 Delivery O2 Flow Rate FiO2 05/08/17 07:45 37.4 97 18 143/87 (105) 95 Room Air 05/08/17 07:33 Room Air 05/08/17 07:21 37.2 95 18 91/58 (69) 05/08/17 00:45 Room Air 05/07/17 22:57 36.6 91 16 102/68 (79) 93 Nasal Cannula 2.0 05/07/17 17:11 94 94/62 (73) 05/07/17 15:15 Nasal Cannula 2.0 05/07/17 14:57 36.4 91 20 130/54 (79) 92 Nasal Cannula 2.0 05/07/17 13:43 86 96/54 (68) 94 Nasal Cannula 2.0 05/07/17 13:30 90 Room Air 05/07/17 11:39 90 85/54 (64) Laboratory Results 24 Hours: Test 05/08/17 07:54 White Blood Count 11.51 K/uL Red Blood Count 3.83 M/uL Hemoglobin 11.3 g/dL Hematocrit 35.2 % Mean Corpuscular Volume 91.9 fL Mean Corpuscular Hemoglobin 29.5 pg Mean Corpuscular Hemoglobin Concent 32.1 g/dl Platelet Count 352 K/uL Mean Platelet Volume 8.0 fL Neutrophils (%) (Auto) 64.8 % Lymphocytes (%) (Auto) 22.8 % Monocytes (%) (Auto) 8.7 % Eosinophils (%) (Auto) 3.1 % Basophils (%) (Auto) 0.2 % Neutrophils # (Auto) 7.45 K/uL Lymphocytes # (Auto) 2.63 K/uL Monocytes # (Auto) 1.00 K/uL Eosinophils # (Auto) 0.36 K/uL Basophils # (Auto) 0.02 K/uL Assessment & Plan Assessment: 76 yo female stable POD #4 s/p right shoulder reverse TSA, hypotension Plan: 1. Med management 2. DVT prophylaxis- SCDs 3. PT/OT 4. D/C planning- [facility] once cleared by medicine service for BP. Inhouse Planning Pain Management: PO Tylenol, Oxy IR DVT Prophylaxis: SCDs Discharge Planning Discharge Planning: [facility] ([facility] Pain Management: PO Tylenol, Oxy IR Therapy: Physical Therapy
--- NOTE | 2017-05-08 10:18 | Hospitalist Progress Note ---
Hospitalist Progress Note Date of Service May 08, 2017. (Corazon Gibbons PA-C) Subjective Pt evaluation today including: conversation w/ patient, physical exam, chart review, lab review, review of studies Pain: none PO Intake: good Voiding: no voiding problems The patient was seen and examined this morning. Pt reports doing very well. No pain. Good oral intake. Pts BP has been improved. ROS: Constitutional: No fever, No chills, No sweats, No fatigue Eyes: No redness ENT: No nasal symptoms, No trouble swallowing Respiratory: No cough, No sputum, No wheezing, No shortness of breath Cardiovascular: No chest pain, No edema, No palpitations Abdomen: + constipation, + problem reported (appetite improving.), No pain, No nausea, No vomiting, No diarrhea (Corazon Gibbons PA-C) Objective Vital Signs Date Time Temp Pulse Resp B/P (MAP) Pulse Ox O2 Delivery O2 Flow Rate FiO2 05/08/17 07:45 37.4 97 18 143/87 (105) 95 Room Air 05/08/17 07:33 Room Air 05/08/17 07:21 37.2 95 18 91/58 (69) 05/08/17 00:45 Room Air 05/07/17 22:57 36.6 91 16 102/68 (79) 93 Nasal Cannula 2.0 05/07/17 17:11 94 94/62 (73) 05/07/17 15:15 Nasal Cannula 2.0 05/07/17 14:57 36.4 91 20 130/54 (79) 92 Nasal Cannula 2.0 05/07/17 13:43 86 96/54 (68) 94 Nasal Cannula 2.0 05/07/17 13:30 90 Room Air 05/07/17 11:39 90 85/54 (64) (Corazon Gibbons PA-C) Physical Exam Notes: General Appearance: WD/WN, no apparent distress Eyes: PERRL, EOMI ENT: hearing grossly normal, pharynx normal Neck: supple, no JVD Respiratory/Chest: chest non-tender, lungs clear, no respiratory distress, no accessory muscle use, + pertinent finding (on room air, no adventitious breath sounds) Cardiovascular: regular rate, rhythm, no murmur Abdomen: normal bowel sounds, non tender, soft Extremities: non-tender, normal inspection, no pedal edema Neurologic/Psychiatric: alert, normal mood/affect, oriented x 3 Skin: normal color, warm/dry (Corazon Gibbons PA-C) Laboratory Results Last 24 Hours Test 05/07/17 10:27 05/07/17 14:16 05/08/17 07:54 Sodium Level 135 mmol/L Potassium Level 3.7 mmol/L Chloride Level 100 mmol/L Carbon Dioxide Level 28 mmol/L Anion Gap 7.0 mmol/L Blood Urea Nitrogen 11 mg/dl Creatinine 0.71 mg/dl Est Creatinine Clear Calc Drug Dose 53.6 ml/min Estimated GFR () 95.2 Estimated GFR (Non- 82.2 BUN/Creatinine Ratio 15.6 Random Glucose 108 mg/dl Calcium Level 8.6 mg/dl Thyroid Stimulating Hormone (TSH) 13.100 uIu/ml Random Cortisol 23.83 mcg/dl White Blood Count 11.51 K/uL Red Blood Count 3.83 M/uL Hemoglobin 11.3 g/dL Hematocrit 35.2 % Mean Corpuscular Volume 91.9 fL Mean Corpuscular Hemoglobin 29.5 pg Mean Corpuscular Hemoglobin Concent 32.1 g/dl Platelet Count 352 K/uL Mean Platelet Volume 8.0 fL Neutrophils (%) (Auto) 64.8 % Lymphocytes (%) (Auto) 22.8 % Monocytes (%) (Auto) 8.7 % Eosinophils (%) (Auto) 3.1 % Basophils (%) (Auto) 0.2 % Neutrophils # (Auto) 7.45 K/uL Lymphocytes # (Auto) 2.63 K/uL Monocytes # (Auto) 1.00 K/uL Eosinophils # (Auto) 0.36 K/uL Basophils # (Auto) 0.02 K/uL RDW Standard Deviation 53.9 fL RDW Coefficient of Variation 16.3 % Immature Granulocyte % (Auto) 0.4 % Immature Granulocyte # (Auto) 0.05 K/uL (Corazon Gibbons PA-C) Assessment and Plan 76 yo F s/p Right Reverse Total Shoulder Arthroplasty on 05/[address] Pearson with postoperative hypotension Hypotension - BPs running low, checking random cortisol = 23.83 checked mid afternoon yesterday, ok. - On review of outpatient records seems pt has chronically low BP: was 92/70 in February and 94/60 in September. Pts BP has improved to her baseline of mid 90s/70s since yesterday. Her diet improved, continue to encourage oral intake. - orthostatics improved - not on antihypertensives - hgb improving to 11.2 Constipation - Bowel regimen with daily miralax and prune juice started today, dulcolax suppository daily prn. 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 We will sign off, thank you for involving us in the care of Mrs. Sheffield. (Corazon Gibbons, PA-C) Attending Attestation: Pt seen/examined, chart reviewed, care plan d/w CHRIS Gibbons. I agree w/ the morales components of her documentation. Pt w/o complaints. BPs normal overnight. VSS no fever gen - nad heart - RRR lungs - CTA b/l abd - soft A/P: 1. hypotension - resolved. Baseline BPs do run low-normal (90-100 systolic) chronically. H/H stable. Cortisol normal. No symptoms/signs of infectious process. 2. hypothyroidism - decompensated. d/c on higher dose of synthroid. TSH in 6 weeks as outpatient. 3. chronic hypoxic resp failure - stable on 3 L NC. ok from medical standpoint to d/c to rehab Fide GARVIN MD (Andrei Garvin MD)
[2017-05-08 13:43] VITALS: BP 143/87; PULSE 97; TEMP 37.4; O2SAT 95
--- NOTE | 2017-05-10 10:36 | Discharge Summary ---
Orthopedic Discharge Summary Admission Date/Reason May 04, 2017 at 17:33 Postoperative Hypotension. Discharge Date/Disposition May 07, 2017 long term facility Diagnosis Principal Diagnosis: S/P Right reverse TSA with post-operative hypotension Medication Reconciliation as per discharge instructions Admission Physical Exam As per Admitting History & Physical. Hospital Course POD #1 patient was feeling well with no complaints. Dressing was C/D/I. She started some PT to work on elbow and wrist ROM. Discharge was uncertain at this time. POD#2 patient was feeling well with no complaints. Dressing C/D/I. Hemovac was discontinued. It was discussed for Discharge to go to a SNF. POD#3 patient was feeling well with no complaints. Dressing was C/D/I. Awaiting authorization for SNF. POD#4 patient was feeling well with no complaints. Dressing was C/D/I. Patient would be discharged to SNF. Discharge Instructions Please refer to the electronic Patient Visit Report (Discharge Instructions) for additional information.
== END 2017-05-08 14:50 | DRG 483 ==
LOC: C.ACU 08:52 → C.MSICU 17:33 → ENRESERV 18:23 → C.MSN 05-05 11:28
PROVIDERS: ADMIT Orthopaedic Surgery; ATTEND Orthopaedic Surgery
PROC: 0RRJ00Z Replacement of Right Shoulder Joint with Reverse Ball and Socket Synthetic Substitute, Open Approach (ICD-10-PCS; principal; 2017-05-04 11:40)
DX: S42.201A Unspecified fracture of upper end of right humerus, initial encounter for closed fracture (principal); J96.11 Chronic respiratory failure with hypoxia; W19.XXXA Unspecified fall, initial encounter; Y92.009 Unspecified place in unspecified non-institutional (private) residence as the place of occurrence of the external cause; M75.21 Bicipital tendinitis, right shoulder; I95.81 Postprocedural hypotension; K59.00 Constipation, unspecified; J84.10 Pulmonary fibrosis, unspecified; E03.9 Hypothyroidism, unspecified; K21.9 Gastro-esophageal reflux disease without esophagitis; M81.0 Age-related osteoporosis without current pathological fracture; M19.90 Unspecified osteoarthritis, unspecified site; F41.9 Anxiety disorder, unspecified; F32.9 Major depressive disorder, single episode, unspecified; Z23 Encounter for immunization; Z99.81 Dependence on supplemental oxygen; Z96.641 Presence of right artificial hip joint; Z87.891 Personal history of nicotine dependence; Z79.1 Long term (current) use of non-steroidal anti-inflammatories (NSAID); Z79.891 Long term (current) use of opiate analgesic; Z79.899 Other long term (current) drug therapy

== ENCOUNTER → 2017-07-30 | Outpatient (CLI) | payer BC, OTHER ==
[~2017-07-30] MED LIST changes: -BUPIVACAINE 0.5 % 5 MG/1 ML PF 10ML VIAL ONE; -CEFAZOLIN 1000MG/55 ML D5W IV SCH; +CELE50CA PO; -CLONIDINE HCL 100 MCG/ML SYRINGE ONE; -LACTATED RINGER'S 1000ML 1,000 ML IV SCH; -LEVO50TA PO; +LEVO75TA PO; -MEPIVACAINE HCL 1.5% 30 ML VIAL ONE; -OXYC-57 PO; -ROPIVACAINE 5MG/ML 30 ML 150 MG, BUPIVACAINE/EPINEPHR 0.5% MPF 30 ML, KETOROLAC TROMETH... INFIL SCH; +RXC5 PO; -VANCOMYCIN 1GM/270ML NSS 270 ML IV SCH
[2017-07-30 18:23] LABS: BASO % 0.3 %; BASO ABS # 0.04 K/uL (0-0.2); COMPLETE YES; EOS % 2.1 %; HEMATOCRIT 40.7 % (37-47); IG% 0.2 %; LYMPH % 10.2 %; LYMPH ABS # 1.33 K/uL (1.2-3.4); MEAN CELL VOLUME 91.5 fL (80-100); MEAN CORPUSCULAR HEMOGLOBIN 28.8 pg (25-34); MEAN CORPUSCULAR HGB CONC 31.4 g/dl (32-36); MEAN PLATELET VOLUME 9.8 fL (7.4-10.4); MONO % 8.4 %; NEUT % 78.8 %; PLATELET COUNT 322 K/uL (130-400); RED BLOOD COUNT 4.45 M/uL (4.2-5.4); WHITE BLOOD COUNT 13.06 K/uL (4.8-10.8)
[2017-07-30 18:44] LABS: ALT/SGPT 22 U/L (12-78); AST/SGOT 24 U/L (15-37); BLOOD UREA NITROGEN 12 mg/dl (7-18); BUN/CREATININE RATIO 11.3 (10-20); CALCIUM 8.7 mg/dl (8.5-10.1); CARBON DIOXIDE 28 mmol/L (21-32); CHLORIDE 101 mmol/L (98-107); CREATININE 1.03 mg/dl (0.60-1.20); GLUCOSE 132 mg/dl (70-99); POTASSIUM 3.5 mmol/L (3.5-5.1); SODIUM 135 mmol/L (136-145)
[2017-07-30 18:57] LABS: ALB/GLOB RATIO 0.8 (0.9-2); ALKALINE PHOSPHATASE 96 U/L (45-117)
== END | disposition home or self-care (01) ==
LOC: C.LABMFLN 11:13
PROVIDERS: ATTEND Family Medicine
DX: J84.10 Pulmonary fibrosis, unspecified (principal); E03.9 Hypothyroidism, unspecified

== ENCOUNTER → 2017-10-23 | Outpatient (CLI) | payer BC, OTHER ==
[2017-10-23 18:46] LABS: BASO % 0.4 %; BASO ABS # 0.07 K/uL (0-0.2); EOS % 1.4 %; EOS ABS # 0.22 K/uL (0-0.5); IG# 0.06 K/uL (0.00-0.02); LYMPH % 8.9 %; LYMPH ABS # 1.42 K/uL (1.2-3.4); MEAN CELL VOLUME 92.6 fL (80-100); MEAN CORPUSCULAR HEMOGLOBIN 29.3 pg (25-34); MEAN CORPUSCULAR HGB CONC 31.7 g/dl (32-36); MEAN PLATELET VOLUME 9.4 fL (7.4-10.4); MONO % 7.6 %; NEUT % 81.3 %; NEUT ABS # 12.92 K/uL (1.4-6.5); PLATELET COUNT 494 K/uL (130-400); RED CELL DISTRIBUTION WIDTH CV 16.7 % (11.5-14.5); RED CELL DISTRIBUTION WIDTH SD 56.3 fL (36.4-46.3); WHITE BLOOD COUNT 15.89 K/uL (4.8-10.8)
[2017-10-23 19:16] LABS: ALBUMIN 3.4 gm/dl (3.4-5.0); BLOOD UREA NITROGEN 22 mg/dl (7-18); CALCIUM 9.8 mg/dl (8.5-10.1); CARBON DIOXIDE 30 mmol/L (21-32); CREATININE 0.88 mg/dl (0.60-1.20); GLUCOSE 122 mg/dl (70-99); PHOSPHORUS 2.7 mg/dl (2.5-4.9); POTASSIUM 3.7 mmol/L (3.5-5.1); SODIUM 136 mmol/L (136-145)
== END | disposition home or self-care (01) ==
LOC: C.LABMFLN 12:17
PROVIDERS: ATTEND Family Medicine
DX: J96.20 Acute and chronic respiratory failure, unspecified whether with hypoxia or hypercapnia (principal)